=== PATIENT | male | born 1945 | race Caucasian/White ===

== ENCOUNTER 2020-08-27 10:53 | Emergency (ER) | payer OTHER ==
--- NOTE | 2020-08-27 11:01 | ERPHSYRPT ---
- History of Present Illness Time Seen by Provider: 08/27/20 11:00 Source: patient, family Exam Limitations: no limitations Physician History: This is a 75-year-old white male [facility] who presents with 1 to 2-month history of left upper extremity numbness. Patient has a history of coronary artery disease and coronary artery balloon angioplasty, CVA in the past, type 2 diabetes and hypertension. Patient denies head injury or injury to his left upper extremity. He denies chest pain. He denies shortness of breath. He has no flulike symptoms. There are no new medications that he takes. Patient states he is under a lot of stress. Occurred: other (1 to 2 months) Method of Injury: other (No injury) Quality: intermittent (Numbness left upper extremity) Severity of Pain-Max: none Severity of Pain-Current: none Modifying Factors: Improves With: nothing Associated Symptoms: none, No chest discomfort, No chest pain, No dyspnea, No short of breath Allergies/Adverse Reactions: No Known Drug Allergies Allergy (Verified 08/27/20 11:14) Home Medications: Unobtainable 08/27/20 [History] Travel Risk - International Travel Have you traveled outside of the country in past 3 weeks: No - Coronavirus Screening Are you exhibiting any of the following symptoms?: No Close contact with a COVID-19 positive Pt in past 14-21 Days: No - Review of Systems Constitutional: No Symptoms Eyes: No Symptoms Ears, Nose, & Throat: No Symptoms Respiratory: No Symptoms Cardiac: No Symptoms Abdominal/Gastrointestinal: No Symptoms Genitourinary Symptoms: No Symptoms Musculoskeletal: No Symptoms Skin: No Symptoms Neurological: Parasthesia (lue) Psychological: No Symptoms Endocrine: No Symptoms Hematologic/Lymphatic: No Symptoms Immunological/Allergic: No Symptoms All Other Systems: Reviewed and Negative - Past Medical History Pertinent Past Medical History: Yes Neurological History: Stroke, TIA ENT History: No Pertinent History Cardiac History: Coronary Artery Disease Respiratory History: No Pertinent History Endocrine Medical History: Diabetes Type II Musculoskeletal History: No Pertinent History GI Medical History: No Pertinent History History: No Pertinent History Psycho-Social History: No Pertinent History - Past Surgical History Past Surgical History: Yes Neuro Surgical History: No Pertinent History Cardiac: Angioplasty Respiratory: No Pertinent History Gastrointestinal: No Pertinent History Genitourinary: No Pertinent History Musculoskeletal: No Pertinent History Male Surgical History: No Pertinent History - Nursing Vital Signs Nursing Vital Signs: Initial Vital Signs Temperature 97.6 F 08/27/20 11:00 Pulse Rate 65 08/27/20 11:00 Respiratory Rate 20 08/27/20 11:00 Blood Pressure 188/94 08/27/20 11:00 O2 Sat by Pulse Oximetry 98 08/27/20 11:00 Pain Scale Pain Intensity 0 - Physical Exam General Appearance: no apparent distress, alert, anxiety Eyes, Ears, Nose, Throat Exam: normal ENT inspection, moist mucous membranes Neck Exam: normal inspection, non-tender, supple, full range of motion Cardiovascular/Respiratory Exam: chest non-tender, normal breath sounds, regular rate/rhythm, heart sounds normal, no respiratory distress Abdominal Exam: non-tender Back Exam: normal inspection, normal range of motion, No CVA tenderness, No vertebral tenderness Shoulder Exam: normal inspection, non-tender, no evidence of injury Elbow/Forearm Exam: normal inspection, non-tender, no evidence of injury, normal ROM Wrist Exam: normal inspection, non-tender, no evidence of injury Hand Exam: normal inspection, non-tender, no evidence of injury, normal ROM Neuro/Tendon Exam: normal sensation, normal motor functions, normal tendon functions Mental Status Exam: alert, 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, cooperative Skin Exam: normal color, warm, dry SpO2 Interpretation: normal O2 Delivery: Room Air - Course Nursing assessment & vital signs reviewed: Yes EKG Interpreted by Me: RATE (59), Sinus Rhythm, NORMAL AXIS, LAFB, NORMAL INTERVALS, NORMAL QRS, Right Bundle Branch Block, Other (No comparison EKG) Ordered Tests: Active Orders 24 hr Category Date Time Status Steel Barrel Reamer STAT Care 08/27/20 11:06 Active EKG-ER Only STAT Care 08/27/20 11:05 Active IV Insertion STAT Care 08/27/20 11:05 Active NPO (ED) STAT Care 08/27/20 11:06 Active Pulse Oximetry (ED) STAT Care 08/27/20 11:05 Active CERVICAL SPINE WO CONTRAST [CT] Stat Exams 08/27/20 11:07 Completed HEAD WITHOUT CONTRAST [CT] Stat Exams 08/27/20 11:07 Completed CBC W DIFF Stat Lab 08/27/20 11:16 Completed CMP Stat Lab 08/27/20 11:16 Completed MAGNESIUM Stat Lab 08/27/20 11:16 Completed NT PRO BNP Stat Lab 08/27/20 11:16 Completed PROTIME WITH INR Stat Lab 08/27/20 11:16 Completed TROPONIN Q3H Lab 08/27/20 11:16 Completed TROPONIN Q3H Lab 08/27/20 14:15 Ordered TROPONIN Q3H Lab 08/27/20 17:15 Ordered TROPONIN Q3H Lab 08/27/20 20:15 Ordered TROPONIN Q3H Lab 08/27/20 23:15 Ordered Lab/Rad Data: Laboratory Result Diagrams 08/27/20 11:16 08/27/20 11:16 Laboratory Results 08/27/20 08/27/20 08/27/20 Range/Units 11:16 11:16 11:16 WBC (4.0-10.5) K/mm3 RBC (4.1-5.6) M/mm3 Hgb (12.5-18.0) gm/dl Hct (42-50) % MCV (78-100) fl MCH (26-32) pg MCHC (32-36) g/dl RDW (11.5-14.0) % Plt Count (150-450) K/mm3 MPV (7.5-11.0) fl Gran % (36.0-66.0) % Eos # (Auto) (0-0.5) Absolute Lymphs (auto) (1.0-4.6) Absolute Monos (auto) (0.0-1.3) Lymphocytes % (24.0-44.0) % Monocytes % (0.0-12.0) % Eosinophils % (0.00-5.0) % Basophils % (0.0-0.4) % Absolute Granulocytes (1.4-6.9) Basophils # (0-0.4) PT 12.6 (8.83-12.87) SECONDS INR 1.11 (0.8-3.0) Sodium 140 (137-145) mmol/L Potassium 4.2 (3.5-5.1) mmol/L Chloride 108 H (98-107) mmol/L Carbon Dioxide 25 (22-30) mmol/L Anion Gap 10.8 (5-15) MEQ/L BUN 20 (9-20) mg/dL Creatinine 0.90 (0.66-1.25) mg/dL Estimated GFR > 60.0 ML/MIN Glucose 186 H (74-106) mg/dL Calcium 10.3 H (8.4-10.2) mg/dL Magnesium 1.7 (1.6-2.3) mg/dL Total Bilirubin 0.40 (0.2-1.3) mg/dL AST 33 (17-59) U/L ALT 24 (0-50) U/L Alkaline Phosphatase 85 (38-126) U/L Troponin I < 0.012 (0.000-0.034) ng/mL NT-Pro-B Natriuret Pep 65.2 (0-900) pg/mL Serum Total Protein 7.3 (6.3-8.2) g/dL Albumin 4.1 (3.5-5.0) g/dL 08/27/20 Range/Units 11:16 WBC 7.1 (4.0-10.5) K/mm3 RBC 4.45 (4.1-5.6) M/mm3 Hgb 13.5 (12.5-18.0) gm/dl Hct 39.3 L (42-50) % MCV 88.3 (78-100) fl MCH 30.3 (26-32) pg MCHC 34.4 (32-36) g/dl RDW 13.5 (11.5-14.0) % Plt Count 232 (150-450) K/mm3 MPV 10.5 (7.5-11.0) fl Gran % 60.2 (36.0-66.0) % Eos # (Auto) 0.36 (0-0.5) Absolute Lymphs (auto) 1.80 (1.0-4.6) Absolute Monos (auto) 0.63 (0.0-1.3) Lymphocytes % 25.4 (24.0-44.0) % Monocytes % 8.9 (0.0-12.0) % Eosinophils % 5.1 H (0.00-5.0) % Basophils % 0.4 (0.0-0.4) % Absolute Granulocytes 4.28 (1.4-6.9) Basophils # 0.03 (0-0.4) PT (8.83-12.87) SECONDS INR (0.8-3.0) Sodium (137-145) mmol/L Potassium (3.5-5.1) mmol/L Chloride (98-107) mmol/L Carbon Dioxide (22-30) mmol/L Anion Gap (5-15) MEQ/L BUN (9-20) mg/dL Creatinine (0.66-1.25) mg/dL Estimated GFR ML/MIN Glucose (74-106) mg/dL Calcium (8.4-10.2) mg/dL Magnesium (1.6-2.3) mg/dL Total Bilirubin (0.2-1.3) mg/dL AST (17-59) U/L ALT (0-50) U/L Alkaline Phosphatase (38-126) U/L Troponin I (0.000-0.034) ng/mL NT-Pro-B Natriuret Pep (0-900) pg/mL Serum Total Protein (6.3-8.2) g/dL Albumin (3.5-5.0) g/dL - Progress Progress: unchanged, re-examined Progress Note: 08/27/20 12:19 CAT scan of the head without contrast reveals no acute intracranial abnormality. CAT scan of the cervical spine without contrast reveals no acute fracture or subluxation. Medical decision making: This patient does not have any evidence of any acute, emergent issue. His symptoms have been chronic. We will discharge him to home and [facility] to [facility]up appointment. Counseled pt/family regarding: lab results, diagnosis, need for follow-up, rad results - Departure Departure Disposition: Home Clinical Impression: Numbness and tingling in left arm Condition: Stable Critical Care Time: No Referrals: [facility] [Primary Care Provider] - Additional Instructions: Call the [facility] today to make arrangements for follow-up appointment. Continue your medication as prescribed.
[2020-08-27 11:23] LABS: Absolute Neutrophil Ct (ANC) 4.28 (1.4-6.9); BASOPHIL % 0.4 % (0.0-0.4); Basophil (Absolute #) 0.03 (0-0.4); Eosinophil % 5.1 % (0.00-5.0); Eosinophil (Absolute #) 0.36 (0-0.5); Hematocrit 39.3 % (42-50); Hemoglobin 13.5 gm/dl (12.5-18.0); Lymphocytes % 25.4 % (24.0-44.0); Mean Cell Volume 88.3 fl (78-100); Mean Corpuscular Hemoglobin 30.3 pg (26-32); Mean Corpuscular Hgb Concent. 34.4 g/dl (32-36); Mean Platelet Volume 10.5 fl (7.5-11.0); Monocyte (Absolute #) 0.63 (0.0-1.3); Monocytes % 8.9 % (0.0-12.0); Neutrophil % 60.2 % (36.0-66.0); Platelet Count 232 K/mm3 (150-450); Red Blood Count 4.45 M/mm3 (4.1-5.6); Red Cell Distribution Width 13.5 % (11.5-14.0); White Blood Count 7.1 K/mm3 (4.0-10.5)
[2020-08-27 11:34] LABS: INR 1.11 (0.8-3.0); PROTIME 12.6 SECONDS (8.83-12.87)
[2020-08-27 11:44] LABS: ALBUMIN 4.1 g/dL (3.5-5.0); ALKALINE PHOSPHATASE 85 U/L (38-126); ANION GAP 10.8 MEQ/L (5-15); BLOOD UREA NITROGEN 20 mg/dL (9-20); CHLORIDE 108 mmol/L (98-107); Calcium 10.3 mg/dL (8.4-10.2); Carbon Dioxide 25 mmol/L (22-30); EST GLOMERULAR FILTRATION RATE > 60.0 ML/MIN; Glucose 186 mg/dL (74-106); MAGNESIUM 1.7 mg/dL (1.6-2.3); NT PRO BNP 65.2 pg/mL (0-900); Potassium 4.2 mmol/L (3.5-5.1); SGOT/AST 33 U/L (17-59); SGPT/ALT 24 U/L (0-50); SODIUM 140 mmol/L (137-145); Total Protein 7.3 g/dL (6.3-8.2)
--- NOTE | 2020-08-27 11:54 | XRAY ---
Indication: Left hand numbness 2 weeks. Left leg swelling. Frequent urination. Multiple contiguous ex images obtained through the head without contrast. Comparison: None Age-appropriate global atrophy. No acute intracranial hemorrhage, abnormal extra-axial fluid collection, or mass effect. Fourth ventricle is midline without hydrocephalus. Bony calvarium intact. Metallic shrapnel deep to left mandible body. Visualized paranasal sinuses are clear. Impression: Atrophy within normal limits for patient's age. No acute intracranial abnormalities.
--- NOTE | 2020-08-27 11:57 | XRAY ---
Indication: Left hand numbness 2 weeks. Multiple contiguous ex images obtained through the cervical spine. Sagittal and coronal reformatted images obtained. Comparison: None Several images slightly degraded by motion artifact. Axial images grossly negative for acute fracture, suspicious bony lesions, or spinal canal stenosis. There is minimal/mild C3-C4 and C5-C7 degenerative endplate spurring. Also mild multilevel bilateral degenerative facet hypertrophy. Sagittal and coronal reformatted images demonstrates cervical lordotic reversal, positional versus paraspinal spasm. C3-C4 and C5-C6 degenerative disc space loss. No acute compression fracture, subluxation, or jumped facet. Normal appearing craniocervical junction. Visualized noncontrasted soft tissues demonstrates mild carotid calcifications bilaterally. Lung apices are clear. Impression: 1. Cervical lordotic reversal positional versus paraspinal spasm. 2. Multilevel degenerative changes and scattered carotid calcifications. 3. Remaining CT cervical spine is negative.
[2020-08-27 12:36] VITALS: BP 178/85; PULSE 56; O2SAT 95
== END 2020-08-27 12:45 | disposition home or self-care (01) ==
LOC: ED 10:53
DX: R20.0 Anesthesia of skin (principal); R20.2 Paresthesia of skin
CPT/HCPCS: 36000; 36415; 70450; 72125; 80053; 83735; 83880; 84484; 85025; 85610; 93005; 93041; 94760; 99284

== ENCOUNTER 2021-02-23 16:36 | Emergency (ER) | payer OTHER ==
[2021-02-23] MEDS ORDERED: Sodium Chloride 0.9% 1000 ML 1,000 ML IV SCH (17:00)
[2021-02-23] MEDS ORDERED: ANTIVERT 25 MG PO ONE (17:00)
[2021-02-23] MEDS ORDERED: Sodium Chloride 0.9% 1000 ML 1,000 ML ONE (17:05)
[2021-02-23] MEDS ORDERED: ANTIVERT 25 MG ONE (17:05)
[2021-02-23 17:15] LABS: Absolute Neutrophil Ct (ANC) 11.75 (1.4-6.9); BASOPHIL % 0.2 % (0.0-0.4); Basophil (Absolute #) 0.03 (0-0.4); Eosinophil % 0.1 % (0.00-5.0); Eosinophil (Absolute #) 0.01 (0-0.5); Hematocrit 38.2 % (42-50); Hemoglobin 13.1 gm/dl (12.5-18.0); Lymphocyte (Absolute #) 1.14 (1.0-4.6); Lymphocytes % 8.2 % (24.0-44.0); Mean Corpuscular Hemoglobin 29.8 pg (26-32); Mean Corpuscular Hgb Concent. 34.3 g/dl (32-36); Mean Platelet Volume 10.4 fl (7.5-11.0); Monocyte (Absolute #) 0.95 (0.0-1.3); Monocytes % 6.8 % (0.0-12.0); Neutrophil % 84.7 % (36.0-66.0); Platelet Count 201 K/mm3 (150-450); Red Blood Count 4.39 M/mm3 (4.1-5.6); Red Cell Distribution Width 13.2 % (11.5-14.0); White Blood Count 13.9 K/mm3 (4.0-10.5)
[2021-02-23 17:28] LABS: ALBUMIN 4.1 g/dL (3.5-5.0); BILIRUBIN,TOTAL 0.6 mg/dL (0.2-1.3); Calcium 9.9 mg/dL (8.4-10.2); Creatinine 1 1.33 mg/dL (0.66-1.25); EST GLOMERULAR FILTRATION RATE 55.9 ML/MIN; MAGNESIUM 1.6 mg/dL (1.6-2.3); Potassium 3.8 mmol/L (3.5-5.1); Total Protein 7.3 g/dL (6.3-8.2)
[2021-02-23 17:46] LABS: Appearance CLEAR (CLEAR); Bilirubin NEGATIVE (NEGATIVE); Blood SMALL Ery/ul (0-5); Glucose NEGATIVE (NEGATIVE); Ketones NEGATIVE (NEGATIVE); Leukocyte Esterase NEGATIVE (NEGATIVE); Mucus SLIGHT /HPF (NEGATIVE); Nitrite NEGATIVE (NEGATIVE); Protein,Urine Dip 100 (Negative); Specific Gravity 1.018 (1.005-1.025); Urobilinogen NEGATIVE mg/dL (0-1)
[2021-02-23 18:06] LABS: Bacteria NONE SEEN /HPF (NEGATIVE)
--- NOTE | 2021-02-23 18:12 | ERPHSYRPT ---
- History of Present Illness Time Seen by Provider: 02/23/21 16:43 Source: patient, family Exam Limitations: no limitations Patient Subjective Stated Complaint: pt here for dizziness for 3-4 days, and has been having left earache, he was seen [facility] ye[facility] and given an antibotic that he was not started, he also states he has not been taking hes meds right Triage Nursing Assessment: pt alert, resp easy, skin w/d/p, no edema noted, pt able to get self up from wc to bed Physician History: 75 years old male with multiple medical problems including coronary artery disease status post stenting, hypertension, hyperlipidemia presented in the ER with chief complaint of dizziness since morning. Patient report every time he tried to stand up or do some activity gets dizzy and lightheaded. Patient denies room spinning sensation but feels unsteady from inside. Denies any fall but does get unbalanced. Denies focal numbness tingling or weakness. No difficulty speech. Does report having some palpitations at times with episodes of dizziness. Each episode lasts for few minutes and improves. Patient does have left ear drainage for almost a month with foul-smelling discharge, was evaluated at [facility] yesterday and is waiting for his medications to be mailed. Timing/Duration: today, sudden, worse Severity: moderate Character of Deficits: other Deficits: off balance Baseline/Normal Cognition: alert 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 Current Cognition: alert 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 Associated Symptoms: trouble walking, No loss of consciousness Allergies/Adverse Reactions: No Known Drug Allergies Allergy (Verified 02/23/21 16:51) Home Medications: ALPRAZolam 0.25 MG [xanAX 0.25 MG] 0.25 mg PO BID 02/23/21 [History] Amlodipine Besylate [Norvasc] 10 mg PO DAILY 02/23/21 [History] Aspirin EC 81 mg [Ecotrin 81 mg] 81 mg PO DAILY 02/23/21 [History] Atorvastatin Calcium [Lipitor] 40 mg PO DAILY 02/23/21 [History] Bisacodyl 5 mg [Dulcolax 5 mg] 5 mg PO DAILY 02/23/21 [History] Duloxetine HCl 30 mg [Cymbalta 30 MG Capsule] 90 mg PO DAILY 02/23/21 [History] Ergocalciferol (Vitamin D2) [Vitamin D2] 50,000 unit PO WEEKLY 02/23/21 [History] Finasteride 5 mg [Proscar 5 MG] 5 mg PO DAILY 02/23/21 [History] Fish Oil/Dha/Epa [Fish Oil 1,200 mg Fish Oil] 1 each PO DAILY 02/23/21 [History] Ketoconazole [Nizoral A-D] 1 ml TP 3XW 02/23/21 [History] Ketorolac Tromethamine 0.5% [Acular OPTH MAKENNA] 1 ml OP UD 02/23/21 [History] Metformin HCl 1,000 mg PO BID 02/23/21 [History] Metoprolol Tartrate 100 mg PO BID 02/23/21 [History] Naproxen 500 mg [Naprosyn 500 MG] 500 mg PO DAILY 02/23/21 [History] Oxybutynin Chloride 5 mg PO TID 02/23/21 [History] glipiZIDE [Glucotrol] 20 mg PO BID 02/23/21 [History] hydroCHLOROthiazide [Hydrochlorothiazide] 25 mg PO DAILY 02/23/21 [History] Hx Influenza Vaccination/Date Given: Yes Hx Pneumococcal Vaccination/Date Given: Yes Immunizations Up to Date: No Travel Risk - International Travel Have you traveled outside of the country in past 3 weeks: No - Coronavirus Screening Are you exhibiting any of the following symptoms?: No Close contact with a COVID-19 positive Pt in past 14-21 Days: No - Vaccine Status Have you recieved a Covid-19 vaccination: No - Review of Systems Constitutional: No Symptoms Eyes: No Symptoms Ears, Nose, & Throat: Ear Pain, Ear Discharge, Hearing Changes Respiratory: No Symptoms Cardiac: Palpitations Abdominal/Gastrointestinal: No Symptoms Genitourinary Symptoms: No Symptoms Musculoskeletal: No Symptoms Neurological: Dizziness Endocrine: No Symptoms Hematologic/Lymphatic: No Symptoms Immunological/Allergic: No Symptoms - Past Medical History Pertinent Past Medical History: Yes Neurological History: Stroke, TIA ENT History: No Pertinent History Cardiac History: Coronary Artery Disease Respiratory History: No Pertinent History Endocrine Medical History: Diabetes Type II Musculoskeletal History: No Pertinent History GI Medical History: No Pertinent History History: No Pertinent History Psycho-Social History: No Pertinent History - Past Surgical History Past Surgical History: Yes Neuro Surgical History: No Pertinent History Cardiac: Angioplasty Respiratory: No Pertinent History Gastrointestinal: No Pertinent History Genitourinary: No Pertinent History Musculoskeletal: No Pertinent History Male Surgical History: No Pertinent History - Social History Smoking Status: Former smoker Exposure to second hand smoke: Yes Drug Use: none Patient Lives Alone: Yes - Nursing Vital Signs Nursing Vital Signs: Initial Vital Signs Pulse Rate 82 02/23/21 16:44 Respiratory Rate 16 02/23/21 16:44 Blood Pressure 179/79 02/23/21 16:44 O2 Sat by Pulse Oximetry 98 02/23/21 16:44 Pain Scale Pain Intensity 0 - Yani Coma Scale Best Eye Response ([place]): (4) open spontaneously Best Verbal Response (Yani): (5) oriented Best Motor Response (Yani): (6) obeys commands [place] Total: 15 - Physical Exam General Appearance: no apparent distress, alert Eye Exam: bilateral eye: normal inspection, PERRL, EOMI Ears, Nose, Throat Exam: pharynx normal, TM abnormal (L), other (Left canal erythema with yellow-green discharge. TM not visible. 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 Exam: normal hearing, normal speech, PERRL Coordination/Gait: normal finger to nose, No ABN nose to finger (R) Motor/Sensory: no motor deficit, no sensory deficit, no pronator drift, negative Babinski's sign DTR: bicep (R): 2+, bicep (L): 2+, knee (R): 2+, knee (L): 2+ Skin Exam: normal color SpO2 Interpretation: normal SpO2: 95 O2 Delivery: Room Air - Course EKG Interpreted by Me: RATE (81), Sinus Rhythm, Left [place] Deviation, LAFB, Right Bundle Branch Block Ordered Tests: Active Orders 24 hr Category Date Time Status Humidifier Operator STAT Care 02/23/21 17:01 Active EKG-ER Only STAT Care 02/23/21 17:00 Active [place] [Catheter-[place]] STAT Care 02/23/21 19:45 Active IV Insertion STAT Care 02/23/21 17:00 Active IV Insertion-2nd Peripheral STAT Care 02/23/21 19:35 Active Orthostatic Vital Signs STAT Care 02/23/21 17:00 Active Oxygen-ED Only Nasal Cannula 4 lpm Care 02/23/21 19:56 Active POCT Glucose Check STAT Care 02/23/21 17:35 Active CHEST 1 VIEW (PORTABLE) Stat Exams 02/23/21 17:00 Completed CHEST 1 VIEW (PORTABLE) Stat Exams 02/23/21 19:[address] ANGIOGRAPHY NECK [CT] Stat Exams 02/23/21 18:48 Taken CTA HEAD W AND/OR WO CONTRAST [CT] Stat Exams 02/23/21 18:47 Taken HEAD WITHOUT CONTRAST [CT] Stat Exams 02/23/21 17:01 Completed ABG [ARTERIAL BLOOD GASES] Stat Lab 02/23/21 18:50 Completed BLOOD CULTURE Stat Lab 02/23/21 19:02 Received BNP [NT PRO BNP] Stat Lab 02/23/21 17:30 Completed CBC W DIFF Stat Lab 02/23/21 17:11 Completed CMP Stat Lab 02/23/21 17:11 Completed CULTURE,URINE Stat Lab 02/23/21 17:40 Received CULTURE,URINE Stat Lab 02/23/21 19:51 Received Lactic Acid Stat Lab 02/23/21 17:05 Completed MAGNESIUM Stat Lab 02/23/21 17:11 Completed POCT GLUCOSE Stat Lab 02/23/21 17:33 Completed POCT GLUCOSE Stat Lab 02/23/21 17:33 Received TROPONIN Q3H Lab 02/23/21 17:11 Completed TROPONIN Q3H Lab 02/23/21 19:02 Completed TROPONIN Q3H Lab 02/23/21 23:00 Ordered TROPONIN Q3H Lab 02/24/21 02:00 Ordered TROPONIN Q3H Lab 02/24/21 05:00 Ordered UA W/RFX UR CULTURE Stat Lab 02/23/21 17:40 Completed UA W/RFX UR CULTURE Stat Lab 02/23/21 19:47 Completed Medication Summary Generic Name Dose Route Start Last Admin Trade Name Freq PRN Reason Stop Dose Admin Sodium Chloride 1,000 mls @ 100 mls/hr 02/23/21 17:00 02/23/21 17:06 Sodium Chloride 0.9% 1000 Ml IV 03/25/21 16:59 100 mls/hr .Q10H FELICE Administration Discontinued Medications Generic Name Dose Route Start Last Admin Trade Name Robert PRN Reason Stop Dose Admin Acetaminophen Confirm 02/23/21 19:11 [place] 650 Mg Administered 02/23/21 19:12 Dose 650 mg .ROUTE .STK-MED ONE Acetaminophen Confirm 02/23/21 19:11 [place] 325 Mg Administered 02/23/21 19:12 Dose 325 mg .ROUTE .STK-MED ONE Acetaminophen 650 mg 02/23/21 19:25 02/23/21 19:26 [place] 650 Mg TN 02/23/21 19:26 650 mg STAT ONE Administration Acetaminophen 325 mg 02/23/21 19:25 02/23/21 19:26 F[place]all 325 Mg TN 02/23/21 19:26 325 mg STAT STA Administration Piperacillin Sod/Tazobactam 100 mls @ 200 mls/hr 02/23/21 18:31 02/23/21 18:59 Sod 3.375 gm/ Sodium Chloride IV 02/23/21 19:00 200 mls/hr STAT ONE Administration Vancomycin HCl 2 gm in 400 mls @ 133.333 mls/hr 02/23/21 18:33 02/23/21 19:27 Vancomycin 2 Gram/400 Ml Bag IV 02/23/21 21:32 133 ml/hr STAT ONE 133 mls/hr Administration Sodium Chloride Confirm 02/23/21 18:53 Sodium Chloride 100ml Mini-Bag Plus Administered 02/23/21 18:54 Dose 100 mls @ ud IV .STK-MED ONE Vancomycin HCl Confirm 02/23/21 18:54 Vancomycin 2 Gram/400 Ml Bag Administered 02/23/21 18:55 Dose 2 gm in 400 mls @ ud IV .STK-MED ONE Lorazepam 0.5 mg 02/23/21 19:49 02/23/21 19:56 Ativan 2 Mg/1 Ml Vial IV 02/23/21 19:50 0.5 mg STAT ONE Administration Lorazepam Confirm 02/23/21 19:50 Ativan 2 Mg/1 Ml Vial Administered 02/23/21 19:51 Dose 2 mg .ROUTE .STK-MED ONE Lorazepam 1 mg 02/23/21 20:28 02/23/21 20:32 Ativan 2 Mg/1 Ml Vial IV 02/23/21 20:29 1 mg STAT ONE Administration Lorazepam Confirm 02/23/21 20:29 Ativan 2 Mg/1 Ml Vial Administered 02/23/21 20:30 Dose 2 mg .ROUTE .STK-MED ONE Meclizine HCl 25 mg 02/23/21 17:00 02/23/21 17:06 Antivert 25 Mg PO 02/23/21 17:01 25 mg STAT ONE Administration Meclizine HCl Confirm 02/23/21 17:05 Antivert 25 Mg Administered 02/23/21 17:06 Dose 25 mg .ROUTE .STK-MED ONE Ondansetron HCl Confirm 02/23/21 18:19 Zofran 4 Mg/2 Ml Vial Administered 02/23/21 18:20 Dose 4 mg .ROUTE .STK-MED ONE Ondansetron HCl 4 mg 02/23/21 18:27 02/23/21 18:20 Zofran 4 Mg/2 Ml Vial IV 02/23/21 18:28 4 mg STAT ONE Administration Piperacillin Sod/Tazobactam Sod Confirm 02/23/21 18:53 Zosyn 3.375 Gm Vial Administered 02/23/21 18:54 Dose 3.375 gm IV .STK-MED ONE Lab/Rad Data: Laboratory Result Diagrams 02/23/21 17:11 02/23/21 17:11 Laboratory Results 02/23/21 02/23/21 02/23/21 Range/Units 19:47 19:02 18:50 WBC (4.0-10.5) K/mm3 RBC (4.1-5.6) M/mm3 Hgb (12.5-18.0) gm/dl Hct (42-50) % MCV (78-100) fl MCH (26-32) pg MCHC (32-36) g/dl RDW (11.5-14.0) % Plt Count (150-450) K/mm3 MPV (7.5-11.0) fl Gran % (36.0-66.0) % Eos # (Auto) (0-0.5) Absolute Lymphs (auto) (1.0-4.6) Absolute Monos (auto) (0.0-1.3) Lymphocytes % (24.0-44.0) % Monocytes % (0.0-12.0) % Eosinophils % (0.00-5.0) % Basophils % (0.0-0.4) % Absolute Granulocytes (1.4-6.9) Basophils # (0-0.4) Puncture Site LEFT BRACHIAL pCO2 31 L (35-45) mmHg pO2 65 L (75-100) mmHg Base Excess 1.7 (-2.0-2.0) O2 Saturation 92.8 L (94-100) g/dF ABG pH 7.50 H (7.35-7.45) ABG HCO3 24.2 (22-28) ABG O2 Sat (Measured) 93.9 L (95-100) % Dale Test N/A A-a Gradient 96 a/A Ratio 0.40 Hemoglobin 13.5 Carboxyhemoglobin 0.7 (0.0-6.9) % THgb Methemoglobin 0.5 L (1.4-1.5) % Temperature 37.0 C POC O2 Flow Rate 28 % Sodium (137-145) mmol/L Potassium 3.5 (3.5-5.1) mmol/L Chloride (98-107) mmol/L Carbon Dioxide (22-30) mmol/L Anion Gap (5-15) MEQ/L BUN (9-20) mg/dL Creatinine (0.66-1.25) mg/dL Estimated GFR ML/MIN Glucose (74-106) mg/dL POC Glucometer (74 to 106) mg/dL Lactic Acid (0.4-2.0) Calcium (8.4-10.2) mg/dL Magnesium (1.6-2.3) mg/dL Total Bilirubin (0.2-1.3) mg/dL AST (17-59) U/L ALT (0-50) U/L Alkaline Phosphatase (38-126) U/L Troponin I < 0.012 (0.000-0.034) ng/mL NT-Pro-B Natriuret Pep (0-900) pg/mL Serum Total Protein (6.3-8.2) g/dL Albumin (3.5-5.0) g/dL Urine Color YELLOW (YELLOW) Urine Appearance CLEAR (CLEAR) Urine pH 5.0 (5-6) Ur Specific [place] 1.029 (1.005-1.025) Urine Protein 100 (Negative) Urine Ketones NEGATIVE (NEGATIVE) Urine Blood SMALL (0-5) Nathan/ul Urine Nitrite NEGATIVE (NEGATIVE) Urine Bilirubin NEGATIVE (NEGATIVE) Urine Urobilinogen NEGATIVE (0-1) mg/dL Ur Leukocyte Esterase NEGATIVE (NEGATIVE) Urine WBC (Auto) 0-2 (0-5) /HPF Urine RBC (Auto) 0-2 (0-2) /HPF U Epithel Cells (Auto) NONE (FEW) /HPF Urine Bacteria (Auto) NONE SEEN (NEGATIVE) /HPF Urine Mucus (Auto) SLIGHT (NEGATIVE) /HPF Urine Culture Reflexed ORDERED SEPARATELY (NO) Urine Glucose NEGATIVE (NEGATIVE) mg/dL 02/23/21 02/23/21 02/23/21 Range/Units 17:40 17:33 17:30 WBC (4.0-10.5) K/mm3 RBC (4.1-5.6) M/mm3 Hgb (12.5-18.0) gm/dl Hct (42-50) % MCV (78-100) fl MCH (26-32) pg MCHC (32-36) g/dl RDW (11.5-14.0) % Plt Count (150-450) K/mm3 MPV (7.5-11.0) fl Gran % (36.0-66.0) % Eos # (Auto) (0-0.5) Absolute Lymphs (auto) (1.0-4.6) Absolute Monos (auto) (0.0-1.3) Lymphocytes % (24.0-44.0) % Monocytes % (0.0-12.0) % Eosinophils % (0.00-5.0) % Basophils % (0.0-0.4) % Absolute Granulocytes (1.4-6.9) Basophils # (0-0.4) Puncture Site pCO2 (35-45) mmHg pO2 (75-100) mmHg Base Excess (-2.0-2.0) O2 Saturation (94-100) g/dF ABG pH (7.35-7.45) ABG HCO3 (22-28) ABG O2 Sat (Measured) (95-100) % Dale Test A-a Gradient a/A Ratio Hemoglobin Carboxyhemoglobin (0.0-6.9) % THgb Methemoglobin (1.4-1.5) % Temperature C POC O2 Flow Rate % Sodium (137-145) mmol/L Potassium (3.5-5.1) mmol/L Chloride (98-107) mmol/L Carbon Dioxide (22-30) mmol/L Anion Gap (5-15) MEQ/L BUN (9-20) mg/dL Creatinine (0.66-1.25) mg/dL Estimated GFR ML/MIN Glucose (74-106) mg/dL POC Glucometer 159 H (74 to 106) mg/dL Lactic Acid (0.4-2.0) Calcium (8.4-10.2) mg/dL Magnesium (1.6-2.3) mg/dL Total Bilirubin (0.2-1.3) mg/dL AST (17-59) U/L ALT (0-50) U/L Alkaline Phosphatase (38-126) U/L Troponin I (0.000-0.034) ng/mL NT-Pro-B Natriuret Pep 171 (0-900) pg/mL Serum Total Protein (6.3-8.2) g/dL Albumin (3.5-5.0) g/dL Urine Color YELLOW (YELLOW) Urine Appearance CLEAR (CLEAR) Urine pH 5.0 (5-6) Ur Specific [place] 1.018 (1.005-1.025) Urine Protein 100 (Negative) Urine Ketones NEGATIVE (NEGATIVE) Urine Blood SMALL (0-5) Nathan/ul Urine Nitrite NEGATIVE (NEGATIVE) Urine Bilirubin NEGATIVE (NEGATIVE) Urine Urobilinogen NEGATIVE (0-1) mg/dL Ur Leukocyte Esterase NEGATIVE (NEGATIVE) Urine WBC (Auto) 3-5 (0-5) /HPF Urine RBC (Auto) NONE (0-2) /HPF U Epithel Cells (Auto) NONE (FEW) /HPF Urine Bacteria (Auto) NONE SEEN (NEGATIVE) /HPF Urine Mucus (Auto) SLIGHT (NEGATIVE) /HPF Urine Culture Reflexed YES (NO) Urine Glucose NEGATIVE (NEGATIVE) mg/dL 02/23/21 02/23/21 02/23/21 Range/Units 17:11 17:11 17:11 WBC 13.9 H (4.0-10.5) K/mm3 RBC 4.39 (4.1-5.6) M/mm3 Hgb 13.1 (12.5-18.0) gm/dl Hct 38.2 L (42-50) % MCV 87.0 (78-100) fl MCH 29.8 (26-32) pg MCHC 34.3 (32-36) g/dl RDW 13.2 (11.5-14.0) % Plt Count 201 (150-450) K/mm3 MPV 10.4 (7.5-11.0) fl Gran % 84.7 H (36.0-66.0) % Eos # (Auto) 0.01 (0-0.5) Absolute Lymphs (auto) 1.14 (1.0-4.6) Absolute Monos (auto) 0.95 (0.0-1.3) Lymphocytes % 8.2 L (24.0-44.0) % Monocytes % 6.8 (0.0-12.0) % Eosinophils % 0.1 (0.00-5.0) % Basophils % 0.2 (0.0-0.4) % Absolute Granulocytes 11.75 H (1.4-6.9) Basophils # 0.03 (0-0.4) Puncture Site pCO2 (35-45) mmHg pO2 (75-100) mmHg Base Excess (-2.0-2.0) O2 Saturation (94-100) g/dF ABG pH (7.35-7.45) ABG HCO3 (22-28) ABG O2 Sat (Measured) (95-100) % Dale Test A-a Gradient a/A Ratio Hemoglobin Carboxyhemoglobin (0.0-6.9) % THgb Methemoglobin (1.4-1.5) % Temperature C POC O2 Flow Rate % Sodium 135 L (137-145) mmol/L Potassium 3.8 (3.5-5.1) mmol/L Chloride 99 (98-107) mmol/L Carbon Dioxide 29 (22-30) mmol/L Anion Gap 11.0 (5-15) MEQ/L BUN 26 H (9-20) mg/dL Creatinine 1.33 H (0.66-1.25) mg/dL Estimated GFR 55.9 ML/MIN Glucose 163 H (74-106) mg/dL POC Glucometer (74 to 106) mg/dL Lactic Acid (0.4-2.0) Calcium 9.9 (8.4-10.2) mg/dL Magnesium 1.6 (1.6-2.3) mg/dL Total Bilirubin 0.60 (0.2-1.3) mg/dL AST 37 (17-59) U/L ALT 29 (0-50) U/L Alkaline Phosphatase 90 (38-126) U/L Troponin I < 0.012 (0.000-0.034) ng/mL NT-Pro-B Natriuret Pep (0-900) pg/mL Serum Total Protein 7.3 (6.3-8.2) g/dL Albumin 4.1 (3.5-5.0) g/dL Urine Color (YELLOW) Urine Appearance (CLEAR) Urine pH (5-6) Ur Specific [place] (1.005-1.025) Urine Protein (Negative) Urine Ketones (NEGATIVE) Urine Blood (0-5) Nathan/ul Urine Nitrite (NEGATIVE) Urine Bilirubin (NEGATIVE) Urine Urobilinogen (0-1) mg/dL Ur Leukocyte Esterase (NEGATIVE) Urine WBC (Auto) (0-5) /HPF Urine RBC (Auto) (0-2) /HPF U Epithel Cells (Auto) (FEW) /HPF Urine Bacteria (Auto) (NEGATIVE) /HPF Urine Mucus (Auto) (NEGATIVE) /HPF Urine Culture Reflexed (NO) Urine Glucose (NEGATIVE) mg/dL 02/23/21 Range/Units 17:05 WBC (4.0-10.5) K/mm3 RBC (4.1-5.6) M/mm3 Hgb (12.5-18.0) gm/dl Hct (42-50) % MCV (78-100) fl MCH (26-32) pg MCHC (32-36) g/dl RDW (11.5-14.0) % Plt Count (150-450) K/mm3 MPV (7.5-11.0) fl Gran % (36.0-66.0) % Eos # (Auto) (0-0.5) Absolute Lymphs (auto) (1.0-4.6) Absolute Monos (auto) (0.0-1.3) Lymphocytes % (24.0-44.0) % Monocytes % (0.0-12.0) % Eosinophils % (0.00-5.0) % Basophils % (0.0-0.4) % Absolute Granulocytes (1.4-6.9) Basophils # (0-0.4) Puncture Site pCO2 (35-45) mmHg pO2 (75-100) mmHg Base Excess (-2.0-2.0) O2 Saturation (94-100) g/dF ABG pH (7.35-7.45) ABG HCO3 (22-28) ABG O2 Sat (Measured) (95-100) % Dale Test A-a Gradient a/A Ratio Hemoglobin Carboxyhemoglobin (0.0-6.9) % THgb Methemoglobin (1.4-1.5) % Temperature C POC O2 Flow Rate % Sodium (137-145) mmol/L Potassium (3.5-5.1) mmol/L Chloride (98-107) mmol/L Carbon Dioxide (22-30) mmol/L Anion Gap (5-15) MEQ/L BUN (9-20) mg/dL Creatinine (0.66-1.25) mg/dL Estimated GFR ML/MIN Glucose (74-106) mg/dL POC Glucometer (74 to 106) mg/dL Lactic Acid 1.9 (0.4-2.0) Calcium (8.4-10.2) mg/dL Magnesium (1.6-2.3) mg/dL Total Bilirubin (0.2-1.3) mg/dL AST (17-59) U/L ALT (0-50) U/L Alkaline Phosphatase (38-126) U/L Troponin I (0.000-0.034) ng/mL NT-Pro-B Natriuret Pep (0-900) pg/mL Serum Total Protein (6.3-8.2) g/dL Albumin (3.5-5.0) g/dL Urine Color (YELLOW) Urine Appearance (CLEAR) Urine pH (5-6) Ur Specific [place] (1.005-1.025) Urine Protein (Negative) Urine Ketones (NEGATIVE) Urine Blood (0-5) Nathan/ul Urine Nitrite (NEGATIVE) Urine Bilirubin (NEGATIVE) Urine Urobilinogen (0-1) mg/dL Ur Leukocyte Esterase (NEGATIVE) Urine WBC (Auto) (0-5) /HPF Urine RBC (Auto) (0-2) /HPF U Epithel Cells (Auto) (FEW) /HPF Urine Bacteria (Auto) (NEGATIVE) /HPF Urine Mucus (Auto) (NEGATIVE) /HPF Urine Culture Reflexed (NO) Urine Glucose (NEGATIVE) mg/dL - Progress Progress: re-examined Progress Note: 02/23/21 19:03 75 years old is evaluated for dizziness. Patient has grossly nonfocal neuro exam on presentation. Is given meclizine. Does have discharged left ear. Negative orthostatics. EKG did not show any acute ST elevations and negative initial troponin. White count 13 with some ALEX with a creatinine of 1.26. Gentle hydration started. CT head is obtained which is negative for any intracranial bleed, midline shift or mass-effect. Neurology specialist on-call tele consult is recommended and obtained. Meanwhile patient started to get more confused and agitated, not acting himself with no previous history of similar symptoms in the past. Moving all 4 extremities. He is calm down but still not back to normal. Neurology has evaluated, recommended CTA head and neck and if negative needs MRI. With his ear infection/encephalopathy I have started him on broad-spectrum antibiotics as well. Discussed with son in detail about current work-up and plan of care and he wants them to be transferred to [facility]. 02/23/21 20:28 Patient did spike fever 101 little bit after neuro consult and is given Tylenol suppository. He is already given a dose of vancomycin and Zosyn. Other than otitis externa does not have any obvious focus of infection. Cultures are pending. CTA head and neck are negative for any acute findings. Per neurology recommendation patient needs MRI for further evaluation. But patient did not have fever while neurology evaluation was done. Discussed with Dr. Cifuentes, recommended transfer to higher level of care. I have discussed with Dr. Gross at [facility], reviewed patient history, work-up, neurology recommendation current management and agreed with transfer. I would leave it up to [facility] to do MRI as his encephalopathy/confusion could be secondary to sepsis/infectious etiology. 02/23/21 22:07 Family later on reported that patient does have sharpnel in his body from [employer] war and cannot have MRI under any circumstances. Discussed with DrJazmyne: Other Counseled pt/family regarding: lab results, diagnosis, rad results - Departure Departure Disposition: Transfer Clinical Impression: Acute encephalopathy, Dizziness Otitis externa Qualifiers: Otitis externa type: unspecified type Chronicity: acute Laterality: left Qualified Code(s): H60.502 - Unspecified acute noninfective otitis externa, left ear Otitis media Qualifiers: Otitis media type: suppurative Chronicity: acute Laterality: left Recurrence: not specified as recurrent Spontaneous tympanic membrane rupture: with spontaneous rupture Qualified Code(s): H66.012 - Acute suppurative otitis media with spontaneous rupture of ear drum, left ear Sepsis Qualifiers: Sepsis type: sepsis due to unspecified organism Sepsis acute organ dysfunction status: unspecified Qualified Code(s): A41.9 - Sepsis, unspecified organism Condition: Fair Critical Care Time: Yes Critical Care Time(excluding separately billable procedures): Critical 75-104 mins Referrals: HOSPITAL,'[facility] [Primary Care Provider] -
[2021-02-23] MEDS ORDERED: Zofran 4 MG/2 ML VIAL ONE (18:19)
[2021-02-23] MEDS ORDERED: Zofran 4 MG/2 ML VIAL IV ONE (18:27)
[2021-02-23] MEDS ORDERED: Zosyn 3.375 GM Vial 3.375 GM in Sodium Chloride 100ML MINI-BAG PLUS 100 ML IV ONE (18:31)
[2021-02-23] MEDS ORDERED: VANCOMYCIN 2 GRAM/400 ML BAG 2 GM/400 ML PIGGYBACK IV ONE ×2 (18:33→18:54)
[2021-02-23] MEDS ORDERED: Zosyn 3.375 GM Vial IV ONE (18:53)
[2021-02-23] MEDS ORDERED: Sodium Chloride 100ML MINI-BAG PLUS 100 ML IV ONE (18:53)
[2021-02-23 18:55] LABS: A-aADO2 96; ABG HEMOGLOBIN 13.5; ABG POTASSIUM 3.5 (3.5-5.1); ARTERIAL BLD GAS O2 SATURATION 93.9 % (95-100); ARTERIAL BLOOD GAS BASE EXCESS 1.7 (-2.0-2.0); ARTERIAL BLOOD GAS FIO2 28 %; ARTERIAL BLOOD GAS PCO2 31 mmHg (35-45); ARTERIAL BLOOD GAS PO2 65 mmHg (75-100); CARBOXYHEMOGLOBIN 0.7 % THgb (0.0-6.9); HCO3- 24.2 (22-28); HGB O2 SAT 92.8 g/dF (94-100); Methhemoglobin 0.5 % (1.4-1.5)
[2021-02-23 18:56] LABS: ABG SITE LEFT BRACHIAL
[2021-02-23] MEDS ORDERED: FEVERALL 325 MG ONE (19:11)
[2021-02-23] MEDS ORDERED: FEVERALL 650 MG ONE (19:11)
[2021-02-23] MEDS ORDERED: FEVERALL 325 MG PR STA (19:25)
[2021-02-23] MEDS ORDERED: FEVERALL 650 MG PR ONE (19:25)
[2021-02-23] MEDS ORDERED: Ativan 2 MG/1 ML VIAL IV ONE ×2 (19:49→20:28)
[2021-02-23] MEDS ORDERED: Ativan 2 MG/1 ML VIAL ONE ×2 (19:50→20:29)
[2021-02-23 20:07] LABS: Appearance CLEAR (CLEAR); Bacteria NONE SEEN /HPF (NEGATIVE); Bilirubin NEGATIVE (NEGATIVE); Blood SMALL Ery/ul (0-5); Glucose NEGATIVE (NEGATIVE); Ketones NEGATIVE (NEGATIVE); Leukocyte Esterase NEGATIVE (NEGATIVE); Mucus SLIGHT /HPF (NEGATIVE); Nitrite NEGATIVE (NEGATIVE); Protein,Urine Dip 100 (Negative); RBC 0-2 /HPF (0-2); Specific Gravity 1.029 (1.005-1.025); Urobilinogen NEGATIVE mg/dL (0-1); WBC 0-2 /HPF (0-5)
--- NOTE | 2021-02-23 20:53 | XRAY ---
Indication: Altered mental status. Confusion. Memory loss and dizziness. Multiple contiguous axial images obtained through the head without contrast. Comparison: August 27, 2020. Stable age-appropriate global atrophy. No acute intracranial hemorrhage, abnormal extra-axial fluid collection, or mass effect. Fourth ventricle is midline without hydrocephalus. Bony calvarium intact. Visualized paranasal sinuses and mastoid air cells are clear. Impression: Continued negative CT head without contrast exam. Comment: Preliminary interpretation was made by [facility]. No critical discrepancy.
--- NOTE | 2021-02-23 20:53 | XRAY ---
Indication: Confusion and dizziness. Comparison: None Portable apical lordotic chest underinflated accentuating cardiopulmonary structures. No focal infiltrate, consolidation, or large effusion. Bony thorax intact. Impression: Nonacute underinflated chest.
--- NOTE | 2021-02-23 20:55 | XRAY ---
Indication: Confusion, fever, and acute mental status change. Comparison: Taken earlier in the day. Portable apical lordotic chest is more markedly underinflated without new cardiopulmonary abnormalities.
[2021-02-23 22:04] VITALS: BP 124/58; PULSE 64
[2021-02-23 22:08] VITALS: O2SAT 95
--- NOTE | 2021-02-24 07:41 | XRAY ---
Indication: Dizziness. Foul drainage left ear. Abnormal blood gas. Conventional contrast enhanced CTA neck performed using 100 cc Isovue 370 contrast. Sagittal and coronal reformatted images obtained. Comparison: None Visualized right carotid circulation demonstrates widely patent common carotid artery. At the level of bulb and proximal internal carotid artery, there is moderate eccentric calcified plaquing producing 50-60 % stenosis. Minimal eccentric calcified plaquing proximal external carotid artery. Visualized left carotid circulation demonstrates minimal distal common carotid artery calcified plaquing. At the level of the bulb and origin internal carotid artery, there is moderate eccentric calcified plaquing producing 50-60 % stenosis. Minimal plaquing at the origin of the external carotid artery. Vertebral arteries are bilaterally patent with the left slightly larger in caliber. No critical stenosis/obstruction. Visualized soft tissues demonstrates homogeneous enhancement parenchyma. A few tiny cervical lymph nodes bilaterally. No pathologic lymphadenopathy. Absent right submandibular gland presumed postsurgical. Remaining prided and left submandibular gland unremarkable. Cervical spine intact with mild/moderate multilevel degenerative spondylosis. Impression: Moderate bilateral calcified plaquing as detailed producing 40-50% stenosis. Comment: Preliminary interpretation was made by [facility]. No critical discrepancy.
--- NOTE | 2021-02-24 07:46 | XRAY ---
Indication: Dizziness. Foul drainage left ear. Abnormal blood gas. Conventional contrast enhanced CTA head performed using 100 cc Isovue 370 contrast. Sagittal and coronal reformatted images obtained. Comparison: None Both distal internal carotid arteries demonstrates mild calcifications at the level of the siphon without critical stenosis/obstruction. Normal carotid terminus with normal branching A1 and M1 segments bilaterally. More distal anterior cerebral and middle cerebral arteries are normal in CTA appearance. Basilar artery is normal in course and caliber. Normal branching posterior cerebral, superior cerebellar, and anterior inferior cerebellar arteries bilaterally. Venous system/sinuses are unremarkable. There is no abnormal enhancing intra-or extra-axial mass. Impression: 1. Bilateral carotid siphon calcifications without critical stenosis/obstruction. 2. Remaining CTA head is negative. Comment: Preliminary interpretation was made by [facility]. No critical discrepancy.
== END 2021-02-23 22:28 | disposition short-term general hospital (02) ==
LOC: ED 16:36
DX: G93.40 Encephalopathy, unspecified (principal); R42 Dizziness and giddiness; H60.502 Unspecified acute noninfective otitis externa, left ear; A41.9 Sepsis, unspecified organism; I25.810 Atherosclerosis of coronary artery bypass graft(s) without angina pectoris; I10 Essential (primary) hypertension; E78.5 Hyperlipidemia, unspecified; Z79.899 Other long term (current) drug therapy; E11.9 Type 2 diabetes mellitus without complications; Z86.73 Personal history of transient ischemic attack (TIA), and cerebral infarction without residual deficits
CPT/HCPCS: 36000; 36415; 36600; 51702; 70450; 70496; 70498; 71045; 80053; 81001; 82375; 82803; 82947; 83605; 83735; 83880; 84484; 85025; 87040; 87086; 93005; 93041; 96360; 96361; 96365; 96367; 96374; 96375; 96376; 99285; 99291; 99292; J2060; J2405; A9270-GY; J3370

== ENCOUNTER 2021-03-13 09:03 | Emergency (ER) | payer OTHER ==
[2021-03-13 09:27] LABS: Absolute Neutrophil Ct (ANC) 5.31 (1.4-6.9); BASOPHIL % 0.3 % (0.0-0.4); Basophil (Absolute #) 0.02 (0-0.4); Eosinophil % 0.1 % (0.00-5.0); Eosinophil (Absolute #) 0.01 (0-0.5); Hematocrit 41.9 % (42-50); Hemoglobin 13.9 gm/dl (12.5-18.0); Lymphocyte (Absolute #) 0.72 (1.0-4.6); Lymphocytes % 10.7 % (24.0-44.0); Mean Cell Volume 87.5 fl (78-100); Mean Corpuscular Hgb Concent. 33.2 g/dl (32-36); Mean Platelet Volume 10.5 fl (7.5-11.0); Monocyte (Absolute #) 0.65 (0.0-1.3); Monocytes % 9.7 % (0.0-12.0); Neutrophil % 79.2 % (36.0-66.0); Platelet Count 175 K/mm3 (150-450); Red Blood Count 4.79 M/mm3 (4.1-5.6); Red Cell Distribution Width 13.3 % (11.5-14.0); White Blood Count 6.7 K/mm3 (4.0-10.5)
[2021-03-13 09:40] LABS: ALBUMIN 4.2 g/dL (3.5-5.0); ALKALINE PHOSPHATASE 98 U/L (38-126); ANION GAP 14.8 MEQ/L (5-15); BLOOD UREA NITROGEN 17 mg/dL (9-20); CHLORIDE 104 mmol/L (98-107); Calcium 9.8 mg/dL (8.4-10.2); Carbon Dioxide 23 mmol/L (22-30); Creatinine 1 0.98 mg/dL (0.66-1.25); EST GLOMERULAR FILTRATION RATE > 60.0 ML/MIN; Glucose 184 mg/dL (74-106); Potassium 3.7 mmol/L (3.5-5.1); SGOT/AST 32 U/L (17-59); SGPT/ALT 21 U/L (0-50); SODIUM 138 mmol/L (137-145); Total Protein 7.4 g/dL (6.3-8.2)
--- NOTE | 2021-03-13 09:40 | ERPHSYRPT ---
- History of Present Illness Source: patient Exam Limitations: other (Poor historian) Patient Subjective Stated Complaint: "Confused and have a headache" Triage Nursing Assessment: Patient presents calm and cooperative but confused. Alert, oriented to self and place, unable to state month or year. GCS 14. Patient appears drowsy, but eye opening is spontaneous and patient obeys commands. PERRLA noted. Skin PWD. Skin feels slightly warm, temp 99.4F. No facial droop, speech impairment, or other stroke symptoms noted. Hypertensive, HR WNL, sinus rhythm noted. Patient reports headache, denies blurred vision. Physician History: 75 yo wm w confusion. Pt presented to ER after arriving to the hospital for a radiologic study which he was not scheduled. He states that he does not feel good and did not sleep last night. Pt states that he has had myalgias but denies fever/N/V/D/dyspnea/chest pain/focal weakness. Timing/Duration: other (Last night) Severity: mild Deficits: no difficulties Current Cognition: alert but confused Baseline Gait: walks w/o assistance Associated Symptoms: confusion, weakness, No fatigue, No fever, No chills, No loss of consciousness, No nausea, No vomiting, No insomnia, No muscle spasms, No numbness/tingling in legs/feet, No paresthesia, No ringing in ears, No seizures, No slurred speech, No trouble walking, No vision changes, No chest pain Allergies/Adverse Reactions: No Known Drug Allergies Allergy (Verified 03/13/21 09:21) Home Medications: ALPRAZolam 0.25 MG [xanAX 0.25 MG] 0.25 mg PO BID 02/23/21 [History] Amlodipine Besylate [Norvasc] 10 mg PO DAILY 02/23/21 [History] Aspirin EC 81 mg [Ecotrin 81 mg] 81 mg PO DAILY 02/23/21 [History] Atorvastatin Calcium [Lipitor] 40 mg PO DAILY 02/23/21 [History] Bisacodyl 5 mg [Dulcolax 5 mg] 5 mg PO DAILY 02/23/21 [History] Duloxetine HCl 30 mg [Cymbalta 30 MG Capsule] 90 mg PO DAILY 02/23/21 [History] Ergocalciferol (Vitamin D2) [Vitamin D2] 50,000 unit PO WEEKLY 02/23/21 [History] Finasteride 5 mg [Proscar 5 MG] 5 mg PO DAILY 02/23/21 [History] Fish Oil/Dha/Epa [Fish Oil 1,200 mg Fish Oil] 1 each PO DAILY 02/23/21 [History] Ketoconazole [Nizoral A-D] 1 ml TP 3XW 02/23/21 [History] Ketorolac Tromethamine 0.5% [Acular OPTH MAKENNA] 1 ml OP UD 02/23/21 [History] Metformin HCl 1,000 mg PO BID 02/23/21 [History] Metoprolol Tartrate 100 mg PO BID 02/23/21 [History] Naproxen 500 mg [Naprosyn 500 MG] 500 mg PO DAILY 02/23/21 [History] Oxybutynin Chloride 5 mg PO TID 02/23/21 [History] glipiZIDE [Glucotrol] 20 mg PO BID 02/23/21 [History] hydroCHLOROthiazide [Hydrochlorothiazide] 25 mg PO DAILY 02/23/21 [History] Hx Influenza Vaccination/Date Given: Yes Hx Pneumococcal Vaccination/Date Given: Yes Travel Risk - International Travel Have you traveled outside of the country in past 3 weeks: No - Coronavirus Screening Are you exhibiting any of the following symptoms?: Yes Symptoms: Headaches/Body Aches/Fatigue Close contact with a COVID-19 positive Pt in past 14-21 Days: No - Vaccine Status Have you recieved a Covid-19 vaccination: Yes Continuous Improvement Intern: Unknown - Vaccination Dates Date of 2cond Vaccination (if applicable): 03/11/2021 Dates if Unknown: n/a Comment: pt presents to ER confused, is able to report to staff that he had 2nd covid vaccine on 03/11, unable to state which brand of vaccine/when first dose was - Review of Systems Constitutional: No Symptoms Eyes: No Symptoms Ears, Nose, & Throat: No Symptoms Respiratory: No Symptoms Cardiac: No Symptoms Abdominal/Gastrointestinal: No Symptoms Genitourinary Symptoms: No Symptoms Musculoskeletal: No Symptoms, Myalgias Skin: No Symptoms Neurological: No Symptoms Psychological: No Symptoms Endocrine: No Symptoms Hematologic/Lymphatic: No Symptoms Immunological/Allergic: No Symptoms - Past Medical History Pertinent Past Medical History: Yes Neurological History: Stroke, TIA ENT History: No Pertinent History Cardiac History: Coronary Artery Disease, High Cholesterol, Hypertension Respiratory History: No Pertinent History Endocrine Medical History: Diabetes Type II Musculoskeletal History: No Pertinent History GI Medical History: No Pertinent History History: No Pertinent History Psycho-Social History: No Pertinent History Male Reproductive Disorders: Other Other Medical History: unrinay incontinence, shrap - Past Surgical History Past Surgical History: Yes Neuro Surgical History: No Pertinent History Cardiac: Angioplasty Respiratory: Tracheostomy Gastrointestinal: Cholecystectomy Genitourinary: No Pertinent History Musculoskeletal: No Pertinent History Male Surgical History: No Pertinent History Other Surgical History: repairs from [place] in [facility], pt has shrapnal throughout his body. - Social History Smoking Status: Former smoker Exposure to second hand smoke: No Drug Use: none Patient Lives Alone: Yes Significant Family History: no pertinent family hx - Nursing Vital Signs Nursing Vital Signs: Initial Vital Signs Temperature 99.4 F 03/13/21 09:06 Pulse Rate 98 H 03/13/21 09:06 Respiratory Rate 24 03/13/21 09:06 Blood Pressure 179/93 03/13/21 09:06 O2 Sat by Pulse Oximetry 93 L 03/13/21 09:06 Pain Scale Pain Intensity 2 - Berthold Coma Scale Best Eye Response (Yani): (4) open spontaneously Best Verbal Response (Berthold): (5) oriented Best Motor Response (Yani): (6) obeys commands Yani Total: 15 - Physical Exam General Appearance: no apparent distress Eye Exam: bilateral eye: normal inspection, PERRL, EOMI Ears, Nose, Throat Exam: normal ENT inspection, TMs normal, pharynx normal, moist mucous membranes Neck Exam: normal inspection, non-tender, supple, full range of motion, No meningismus, No mass, No Brudzinski, No Kernig's, No carotid bruit Respiratory: normal breath sounds, lungs clear, airway intact, No respiratory distress Cardiovascular: regular rate/rhythm, normal heart sounds, normal peripheral pulses, No murmur Gastrointestinal: soft, normal bowel sounds, No tenderness, No distention, No mass Back Exam: normal inspection, normal range of motion, No CVA tenderness, No vertebral tenderness Extremity Exam: normal inspection, normal range of motion, pelvis stable Peripheral Pulses: carotid (R): 2+, carotid (L): 2+ Mental Status: alert, 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, cooperative, other (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 for nursing, 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, normal speech, PERRL Coordination/Gait: normal finger to nose, normal gait Motor/Sensory: no motor deficit, no sensory deficit, no pronator drift, negative Babinski's sign DTR: bicep (R): 2+, bicep (L): 2+ Skin Exam: normal color, warm, dry SpO2 Interpretation: borderline oxygenation SpO2: 93 O2 Delivery: Room Air - Course Nursing assessment & vital signs reviewed: Yes - Radiology Exams Chest X-ray Interpretation: Discussed w/ radiologist (CXR neg per Rad) - CT Exams Head CT Interpretation: Discussed w/radiologist (NAD per Rad) Ordered Tests: Active Orders 24 hr Category Date Time Status IV Insertion STAT Care 03/13/21 09:08 Completed CHEST 1 VIEW (PORTABLE) Stat Exams 03/13/21 09:39 Completed HEAD WITHOUT CONTRAST [CT] Stat Exams 03/13/21 09:39 Completed CBC W DIFF Stat Lab 03/13/21 09:15 Completed CMP Stat Lab 03/13/21 09:15 Completed CULTURE,URINE Stat Lab 03/13/21 09:40 Received Lactic Acid Stat Lab 03/13/21 09:08 Completed TROPONIN Q3H Lab 03/13/21 09:15 Completed UA W/RFX UR CULTURE Stat Lab 03/13/21 09:40 Completed Lab/Rad Data: Laboratory Result Diagrams 03/13/21 09:15 03/13/21 09:15 Laboratory Results 03/13/21 03/13/21 03/13/21 Range/Units 09:40 09:15 09:15 WBC (4.0-10.5) K/mm3 RBC (4.1-5.6) M/mm3 Hgb (12.5-18.0) gm/dl Hct (42-50) % MCV (78-100) fl MCH (26-32) pg MCHC (32-36) g/dl RDW (11.5-14.0) % Plt Count (150-450) K/mm3 MPV (7.5-11.0) fl Gran % (36.0-66.0) % Eos # (Auto) (0-0.5) Absolute Lymphs (auto) (1.0-4.6) Absolute Monos (auto) (0.0-1.3) Lymphocytes % (24.0-44.0) % Monocytes % (0.0-12.0) % Eosinophils % (0.00-5.0) % Basophils % (0.0-0.4) % Absolute Granulocytes (1.4-6.9) Basophils # (0-0.4) Sodium 138 (137-145) mmol/L Potassium 3.7 (3.5-5.1) mmol/L Chloride 104 (98-107) mmol/L Carbon Dioxide 23 (22-30) mmol/L Anion Gap 14.8 (5-15) MEQ/L BUN 17 (9-20) mg/dL Creatinine 0.98 (0.66-1.25) mg/dL Estimated GFR > 60.0 ML/MIN Glucose 184 H (74-106) mg/dL Lactic Acid (0.4-2.0) Calcium 9.8 (8.4-10.2) mg/dL Total Bilirubin 0.60 (0.2-1.3) mg/dL AST 32 (17-59) U/L ALT 21 (0-50) U/L Alkaline Phosphatase 98 (38-126) U/L Troponin I 0.034 (0.000-0.034) ng/mL Serum Total Protein 7.4 (6.3-8.2) g/dL Albumin 4.2 (3.5-5.0) g/dL Urine Color YELLOW (YELLOW) Urine Appearance CLEAR (CLEAR) Urine pH 5.0 (5-6) Ur Specific Mcfarland 1.020 (1.005-1.025) Urine Protein >=500 (Negative) Urine Ketones NEGATIVE (NEGATIVE) Urine Blood SMALL (0-5) Nathan/ul Urine Nitrite NEGATIVE (NEGATIVE) Urine Bilirubin NEGATIVE (NEGATIVE) Urine Urobilinogen NEGATIVE (0-1) mg/dL Ur Leukocyte Esterase NEGATIVE (NEGATIVE) Urine WBC (Auto) 0-2 (0-5) /HPF Urine RBC (Auto) 0-2 (0-2) /HPF U Epithel Cells (Auto) RARE (FEW) /HPF Urine Bacteria (Auto) RARE (NEGATIVE) /HPF Urine Mucus (Auto) SLIGHT (NEGATIVE) /HPF Urine Culture Reflexed YES (NO) Urine Glucose NEGATIVE (NEGATIVE) mg/dL 03/13/21 03/13/21 Range/Units 09:15 09:08 WBC 6.7 (4.0-10.5) K/mm3 RBC 4.79 (4.1-5.6) M/mm3 Hgb 13.9 (12.5-18.0) gm/dl Hct 41.9 L (42-50) % MCV 87.5 (78-100) fl MCH 29.0 (26-32) pg MCHC 33.2 (32-36) g/dl RDW 13.3 (11.5-14.0) % Plt Count 175 (150-450) K/mm3 MPV 10.5 (7.5-11.0) fl Gran % 79.2 H (36.0-66.0) % Eos # (Auto) 0.01 (0-0.5) Absolute Lymphs (auto) 0.72 L (1.0-4.6) Absolute Monos (auto) 0.65 (0.0-1.3) Lymphocytes % 10.7 L (24.0-44.0) % Monocytes % 9.7 (0.0-12.0) % Eosinophils % 0.1 (0.00-5.0) % Basophils % 0.3 (0.0-0.4) % Absolute Granulocytes 5.31 (1.4-6.9) Basophils # 0.02 (0-0.4) Sodium (137-145) mmol/L Potassium (3.5-5.1) mmol/L Chloride (98-107) mmol/L Carbon Dioxide (22-30) mmol/L Anion Gap (5-15) MEQ/L BUN (9-20) mg/dL Creatinine (0.66-1.25) mg/dL Estimated GFR ML/MIN Glucose (74-106) mg/dL Lactic Acid 1.5 (0.4-2.0) Calcium (8.4-10.2) mg/dL Total Bilirubin (0.2-1.3) mg/dL AST (17-59) U/L ALT (0-50) U/L Alkaline Phosphatase (38-126) U/L Troponin I (0.000-0.034) ng/mL Serum Total Protein (6.3-8.2) g/dL Albumin (3.5-5.0) g/dL Urine Color (YELLOW) Urine Appearance (CLEAR) Urine pH (5-6) Ur Specific Mcfarland (1.005-1.025) Urine Protein (Negative) Urine Ketones (NEGATIVE) Urine Blood (0-5) Nathan/ul Urine Nitrite (NEGATIVE) Urine Bilirubin (NEGATIVE) Urine Urobilinogen (0-1) mg/dL Ur Leukocyte Esterase (NEGATIVE) Urine WBC (Auto) (0-5) /HPF Urine RBC (Auto) (0-2) /HPF U Epithel Cells (Auto) (FEW) /HPF Urine Bacteria (Auto) (NEGATIVE) /HPF Urine Mucus (Auto) (NEGATIVE) /HPF Urine Culture Reflexed (NO) Urine Glucose (NEGATIVE) mg/dL - Progress Progress Note: 03/13/21 10:44 Pt wo source of infection or evidence of sepsis. Pt alert and 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 wo focal weakness or evidence of CVA. Pt was not getting an XR but was getting Rocephin injection. Rocephin given in ER. 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 Counseled pt/family regarding: diagnosis, need for follow-up, rad results - Departure Departure Disposition: Home Clinical Impression: Confusion Condition: Stable Critical Care Time: No Referrals: HOSPITAL,'S [Primary Care Provider] - Instructions: Delirium (Confusion) (DC), Dementia (DC) Additional Instructions: Follow up with PCP in 1-2 days Return to ER for focal weakness or temperature greater than 100.5
--- NOTE | 2021-03-13 09:53 | XRAY ---
Indication: Confusion. Multiple contiguous axial images obtained through the head without contrast. Comparison: February 23, 2021. 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 No acute intracranial hemorrhage, abnormal extra-axial fluid collection, or mass effect. Fourth ventricle is midline without hydrocephalus. Bony calvarium intact. Visualized paranasal sinuses and mastoid air cells are clear. Impression: Continued negative CT head without contrast exam.
--- NOTE | 2021-03-13 09:55 | XRAY ---
Indication: Confusion. Comparison: February 23, 2021. Portable chest better inflated and slightly rotated. No focal infiltrate, consolidation, or large effusion. Heart not enlarged. Impression: Continued nonacute chest.
[2021-03-13 09:58] LABS: Appearance CLEAR (CLEAR); Bacteria RARE /HPF (NEGATIVE); Bilirubin NEGATIVE (NEGATIVE); Blood SMALL Ery/ul (0-5); Epithelial Cells RARE /HPF (FEW); Glucose NEGATIVE (NEGATIVE); Ketones NEGATIVE (NEGATIVE); Leukocyte Esterase NEGATIVE (NEGATIVE); Mucus SLIGHT /HPF (NEGATIVE); Nitrite NEGATIVE (NEGATIVE); Protein,Urine Dip >=500 (Negative); RBC 0-2 /HPF (0-2); Urobilinogen NEGATIVE mg/dL (0-1); WBC 0-2 /HPF (0-5)
[2021-03-13 10:40] VITALS: BP 170/72; PULSE 94
[2021-03-13 10:49] VITALS: O2SAT 93
== END 2021-03-13 10:55 | disposition home or self-care (01) ==
LOC: ED 09:03
DX: R41.0 Disorientation, unspecified (principal); R51.9 Headache, unspecified; Z79.899 Other long term (current) drug therapy; I10 Essential (primary) hypertension; E78.00 Pure hypercholesterolemia, unspecified; I25.10 Atherosclerotic heart disease of native coronary artery without angina pectoris; Z86.73 Personal history of transient ischemic attack (TIA), and cerebral infarction without residual deficits; E11.9 Type 2 diabetes mellitus without complications
CPT/HCPCS: 36000; 36415; 70450; 71045; 80053; 81001; 83605; 84484; 85025; 87086; 99284

== ENCOUNTER 2021-04-05 05:40 | Observation (INO) | payer OTHER ==
[2021-04-05] MEDS ORDERED: Zofran 4 MG/2 ML VIAL ONE (05:57)
[2021-04-05] MEDS ORDERED: Zofran 4 MG/2 ML VIAL IV ONE (06:15)
--- NOTE | 2021-04-05 06:22 | ERPHSYRPT ---
- History of Present Illness Time Seen by Provider: 04/05/21 06:10 Source: patient Exam Limitations: no limitations Physician History: Patient is a 75-year-old male presents to our ED with his daughter for evaluation of a severe headache. Patient stated to ER MD that his headache started yesterday afternoon. However he told nursing staff that his headache started yesterday evening at approximately yesterday night at 2300. Patient called his daughter at approximately 4 AM with complaints of severe headache. He reportedly vomited 3 times. Patient has a history of TIA stroke per record. Patient states the headache is severe. He is tearful. Headache originates at the back of his head and radiates towards the front. Nursing staff felt patient was confused however patient answering questions appropriately for ER MD. He is hard of hearing. Patient able to relate that he had his second Covid vaccine on 517. He is somewhat hard of hearing. Symptoms are moderate in intensity. No specific worsening improving factors. Patient took his meds this morning including an aspirin 81 mg. Patient's blood pressure observed to be elevated. Patient daughter voiced no other complaints concerns at this time. Timing/Duration: yesterday Severity: moderate Character of Deficits: Left Facial, LUE Deficits: no difficulties Baseline/Normal Cognition: alert 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 Current Cognition: alert 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 Baseline Gait: walks w/o assistance Associated Symptoms: nausea, vomiting, paresthesia, headache, No fever, No chills, No loss of consciousness, No vision changes, No chest pain Allergies/Adverse Reactions: No Known Drug Allergies Allergy (Verified 04/05/21 05:42) Home Medications: ALPRAZolam 0.25 MG [xanAX 0.25 MG] 0.25 mg PO BID PRN 02/23/21 [History] Aspirin EC 81 mg [Ecotrin 81 mg] 81 mg PO DAILY 02/23/21 [History] Atorvastatin Calcium [Lipitor] 40 mg PO DAILY 02/23/21 [History] Bisacodyl 5 mg [Dulcolax 5 mg] 5 mg PO DAILY PRN 02/23/21 [History] Duloxetine HCl 30 mg [Cymbalta 30 MG Capsule] 90 mg PO DAILY 02/23/21 [History] Ergocalciferol (Vitamin D2) [Vitamin D2] 50,000 unit PO WEEKLY 02/23/21 [History] Finasteride 5 mg [Proscar 5 MG] 5 mg PO DAILY 02/23/21 [History] Fish Oil/Dha/Epa [Fish Oil 1,200 mg Fish Oil] 2 each PO BID 02/23/21 [History] Ketoconazole [Nizoral A-D] 1 ml TP 3XW PRN 02/23/21 [History] Metformin HCl 1,000 mg PO BID 02/23/21 [History] Metoprolol Tartrate 100 mg PO BID 02/23/21 [History] glipiZIDE [Glucotrol] 20 mg PO BID 02/23/21 [History] Losartan Potassium 50 mg [Cozaar 50 MG] 50 mg PO DAILY 04/05/21 [History] Omeprazole 40 mg PO DAILY 04/05/21 [History] Triamcinolone Acetonide [Triderm] 28.4 gm TP BID PRN 04/05/21 [History] Hx Influenza Vaccination/Date Given: Yes Hx Pneumococcal Vaccination/Date Given: Yes Travel Risk - Vaccine Status Have you recieved a Covid-19 vaccination: Yes 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 - Vaccination Dates Date of 2cond Vaccination (if applicable): 03/11/2021 Dates if Unknown: n/a Comment: pt presents to ER confused, is able to report to staff that he had 2nd covid vaccine on 03/11, unable to state which brand of vaccine/when first dose was - Review of Systems Constitutional: No Symptoms, No Fever, No Chills Eyes: No Symptoms Ears, Nose, & Throat: No Symptoms Respiratory: No Symptoms, No Cough, No Dyspnea Cardiac: No Symptoms, No Chest Pain, No Edema, No Syncope Abdominal/Gastrointestinal: No Symptoms, No Abdominal Pain, No Nausea, No Vomiting, No Diarrhea Genitourinary Symptoms: No Symptoms, No Dysuria Musculoskeletal: No Symptoms, No Back Pain, No Neck Pain Skin: No Symptoms, No Rash Neurological: No Symptoms, No Dizziness, No Focal Weakness, No Sensory Changes Psychological: No Symptoms Endocrine: No Symptoms Hematologic/Lymphatic: No Symptoms Immunological/Allergic: No Symptoms All Other Systems: Reviewed and Negative - Past Medical History Pertinent Past Medical History: Yes Neurological History: Stroke, TIA ENT History: No Pertinent History Cardiac History: Coronary Artery Disease, High Cholesterol, Hypertension Respiratory History: No Pertinent History Endocrine Medical History: Diabetes Type II Musculoskeletal History: No Pertinent History GI Medical History: No Pertinent History History: No Pertinent History Psycho-Social History: No Pertinent History Male Reproductive Disorders: Other Other Medical History: unrinay incontinence, shrap - Past Surgical History Past Surgical History: Yes Neuro Surgical History: No Pertinent History Cardiac: Angioplasty Respiratory: Tracheostomy Gastrointestinal: Cholecystectomy Genitourinary: No Pertinent History Musculoskeletal: No Pertinent History Male Surgical History: No Pertinent History Other Surgical History: repairs from [facility] in [facility], pt has shrapnal throughout his body. - Social History Smoking Status: Former smoker Exposure to second hand smoke: No Drug Use: none Patient Lives Alone: Yes Significant Family History: no pertinent family hx - Nursing Vital Signs Nursing Vital Signs: Initial Vital Signs Temperature 97.6 F 04/05/21 05:42 Pulse Rate 76 04/05/21 05:42 Respiratory Rate 24 04/05/21 05:42 Blood Pressure 227/130 04/05/21 05:42 O2 Sat by Pulse Oximetry 98 04/05/21 05:42 Pain Scale Pain Intensity 5 - [place] Coma Scale Best Eye Response ([place]): (4) open spontaneously Best Verbal Response ([place]): (5) oriented Best Motor Response ([place]): (6) obeys commands Yani Total: 15 - Physical Exam General Appearance: mild distress (Mild discomfort due to headache.), alert Eye Exam: bilateral eye: normal inspection, PERRL, EOMI Ears, Nose, Throat Exam: normal ENT inspection, moist mucous membranes Neck Exam: normal inspection, non-tender, supple Respiratory: normal breath sounds, lungs clear, airway intact, No respiratory distress Cardiovascular: regular rate/rhythm, No edema Gastrointestinal: soft, No tenderness, No distention Back Exam: normal inspection Extremity Exam: normal inspection, normal range of motion, pelvis stable, other (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 Exam: normal hearing, normal speech, PERRL, facial droop, tongue midline, No abnormal eye position, No abnormal pupil position Coordination/Gait: normal finger to nose, normal cerebellar function Motor/Sensory: no motor deficit, no sensory deficit, no pronator drift Skin Exam: normal color, warm, dry, No rash SpO2 Interpretation: normal SpO2: 94 O2 Delivery: Room Air - Course Nursing assessment & vital signs reviewed: Yes EKG Interpreted by Me: RATE (78), Sinus Rhythm, NORMAL AXIS, NORMAL INTERVALS - CT Exams Head CT Interpretation: Tele-radiologist Report (Atrophy and the sequela of prior small vessel ischemia. No acute intracranial abnormality) Ordered Tests: Active Orders 24 hr Category Date Time Status Office Cashier STAT Care 04/05/21 06:00 Active EKG-ER Only STAT Care 04/05/21 05:59 Active IV Insertion STAT Care 04/05/21 05:59 Active NPO (ED) STAT Care 04/05/21 06:01 Active Pulse Oximetry (ED) STAT Care 04/05/21 05:[address] ANGIOGRAPHY NECK [CT] Stat Exams 04/05/21 06:38 Ordered CTA HEAD W AND/OR WO CONTRAST [CT] Stat Exams 04/05/21 06:43 Ordered HEAD WITHOUT CONTRAST [CT] Stat Exams 04/05/21 05:52 Taken CBC W DIFF Stat Lab 04/05/21 06:13 Completed CMP Stat Lab 04/05/21 06:13 Completed TROPONIN Q3H Lab 04/05/21 06:13 Completed TROPONIN Q3H Lab 04/05/21 09:00 Ordered TROPONIN Q3H Lab 04/05/21 12:00 Ordered TROPONIN Q3H Lab 04/05/21 15:00 Ordered TROPONIN Q3H Lab 04/05/21 18:00 Ordered UA W/RFX UR CULTURE Stat Lab 04/05/21 06:00 Completed Medication Summary Discontinued Medications Generic Name Dose Route Start Last Admin Trade Name Freq PRN Reason Stop Dose Admin Aspirin 243 mg 04/05/21 06:31 04/05/21 06:32 Baby Aspirin 81 Mg Chew PO 04/05/21 06:32 243 mg STAT ONE Administration Aspirin Confirm 04/05/21 06:32 Baby Aspirin 81 Mg Chew Administered 04/05/21 06:33 Dose 243 mg .ROUTE .STK-MED ONE Ondansetron HCl Confirm 04/05/21 05:57 Zofran 4 Mg/2 Ml Vial Administered 04/05/21 05:58 Dose 4 mg .ROUTE .STK-MED ONE Ondansetron HCl 4 mg 04/05/21 06:15 04/05/21 06:16 Zofran 4 Mg/2 Ml Vial IV 04/05/21 06:16 4 mg STAT ONE Administration Lab/Rad Data: Laboratory Result Diagrams 04/05/21 06:13 04/05/21 06:13 Laboratory Results 04/05/21 04/05/21 04/05/21 Range/Units 06:13 06:13 06:13 WBC 9.4 (4.0-10.5) K/mm3 RBC 5.07 (4.1-5.6) M/mm3 Hgb 14.6 (12.5-18.0) gm/dl Hct 43.3 (42-50) % MCV 85.4 (78-100) fl MCH 28.8 (26-32) pg MCHC 33.7 (32-36) g/dl RDW 13.2 (11.5-14.0) % Plt Count 245 (150-450) K/mm3 MPV 10.7 (7.5-11.0) fl Gran % 76.7 H (36.0-66.0) % Eos # (Auto) 0.12 (0-0.5) Absolute Lymphs (auto) 1.53 (1.0-4.6) Absolute Monos (auto) 0.53 (0.0-1.3) Lymphocytes % 16.3 L (24.0-44.0) % Monocytes % 5.6 (0.0-12.0) % Eosinophils % 1.3 (0.00-5.0) % Basophils % 0.1 (0.0-0.4) % Absolute Granulocytes 7.21 H (1.4-6.9) Basophils # 0.01 (0-0.4) Sodium 135 L (137-145) mmol/L Potassium 4.0 (3.5-5.1) mmol/L Chloride 99 (98-107) mmol/L Carbon Dioxide 27 (22-30) mmol/L Anion Gap 12.8 (5-15) MEQ/L BUN 22 H (9-20) mg/dL Creatinine 0.94 (0.66-1.25) mg/dL Estimated GFR > 60.0 ML/MIN Glucose 242 H (74-106) mg/dL Calcium 10.3 H (8.4-10.2) mg/dL Total Bilirubin 0.60 (0.2-1.3) mg/dL AST 28 (17-59) U/L ALT 20 (0-50) U/L Alkaline Phosphatase 100 (38-126) U/L Troponin I < 0.012 (0.000-0.034) ng/mL Serum Total Protein 7.5 (6.3-8.2) g/dL Albumin 4.4 (3.5-5.0) g/dL Urine Color (YELLOW) Urine Appearance (CLEAR) Urine pH (5-6) Ur Specific [place] (1.005-1.025) Urine Protein (Negative) Urine Ketones (NEGATIVE) Urine Blood (0-5) Nathan/ul Urine Nitrite (NEGATIVE) Urine Bilirubin (NEGATIVE) Urine Urobilinogen (0-1) mg/dL Ur Leukocyte Esterase (NEGATIVE) Urine WBC (Auto) (0-5) /HPF Urine RBC (Auto) (0-2) /HPF U Hyaline Cast (Auto) (0-2) /LPF U Epithel Cells (Auto) (FEW) /HPF Urine Bacteria (Auto) (NEGATIVE) /HPF Urine Culture Reflexed (NO) Urine Glucose (NEGATIVE) mg/dL 04/05/21 Range/Units 06:00 WBC (4.0-10.5) K/mm3 RBC (4.1-5.6) M/mm3 Hgb (12.5-18.0) gm/dl Hct (42-50) % MCV (78-100) fl MCH (26-32) pg MCHC (32-36) g/dl RDW (11.5-14.0) % Plt Count (150-450) K/mm3 MPV (7.5-11.0) fl Gran % (36.0-66.0) % Eos # (Auto) (0-0.5) Absolute Lymphs (auto) (1.0-4.6) Absolute Monos (auto) (0.0-1.3) Lymphocytes % (24.0-44.0) % Monocytes % (0.0-12.0) % Eosinophils % (0.00-5.0) % Basophils % (0.0-0.4) % Absolute Granulocytes (1.4-6.9) Basophils # (0-0.4) Sodium (137-145) mmol/L Potassium (3.5-5.1) mmol/L Chloride (98-107) mmol/L Carbon Dioxide (22-30) mmol/L Anion Gap (5-15) MEQ/L BUN (9-20) mg/dL Creatinine (0.66-1.25) mg/dL Estimated GFR ML/MIN Glucose (74-106) mg/dL Calcium (8.4-10.2) mg/dL Total Bilirubin (0.2-1.3) mg/dL AST (17-59) U/L ALT (0-50) U/L Alkaline Phosphatase (38-126) U/L Troponin I (0.000-0.034) ng/mL Serum Total Protein (6.3-8.2) g/dL Albumin (3.5-5.0) g/dL Urine Color STRAW (YELLOW) Urine Appearance CLEAR (CLEAR) Urine pH 7.0 (5-6) Ur Specific [place] 1.014 (1.005-1.025) Urine Protein >=500 (Negative) Urine Ketones NEGATIVE (NEGATIVE) Urine Blood NEGATIVE (0-5) Nathan/ul Urine Nitrite NEGATIVE (NEGATIVE) Urine Bilirubin NEGATIVE (NEGATIVE) Urine Urobilinogen NEGATIVE (0-1) mg/dL Ur Leukocyte Esterase NEGATIVE (NEGATIVE) Urine WBC (Auto) 0-2 (0-5) /HPF Urine RBC (Auto) 6-10 (0-2) /HPF U Hyaline Cast (Auto) 3-5 (0-2) /LPF U Epithel Cells (Auto) RARE (FEW) /HPF Urine Bacteria (Auto) NONE (NEGATIVE) /HPF Urine Culture Reflexed NO (NO) Urine Glucose 150 (NEGATIVE) mg/dL - Progress Progress: improved Progress Note: 04/05/21 06:21 NIH score is 3 04/05/21 06:54 CT head negative for acute intracranial pathology. Patient received aspirin 243 mg. He took 81 mg this morning. Patient's blood pressure improved from 220 systolic to 185 systolic at this time. Patient states his headache has improved as well. CT angio of head and neck ordered. However at this time teleneuro has been consulted. We will move forward with CT angio after teleneuro consultation. It is currently change of shift. Patient endorsed to incoming physician Dr. Wren who will make final disposition. [facility] therefore we will need to [facility] with the [facility] prior to admission if admission is indicated. Most of the labs are pending. CBC has returned however. 04/05/21 06:57 04/05/21 07:03 Counseled pt/family regarding: diagnosis, rad results - Departure Clinical Impression: Migraine headache, Hypertension Condition: Stable Critical Care Time: No Referrals: [facility]OSPITAL,'S [Primary Care Provider] -
[2021-04-05 06:27] LABS: Absolute Neutrophil Ct (ANC) 7.21 (1.4-6.9); BASOPHIL % 0.1 % (0.0-0.4); Basophil (Absolute #) 0.01 (0-0.4); Eosinophil % 1.3 % (0.00-5.0); Eosinophil (Absolute #) 0.12 (0-0.5); Hematocrit 43.3 % (42-50); Hemoglobin 14.6 gm/dl (12.5-18.0); Lymphocyte (Absolute #) 1.53 (1.0-4.6); Lymphocytes % 16.3 % (24.0-44.0); Mean Cell Volume 85.4 fl (78-100); Mean Corpuscular Hemoglobin 28.8 pg (26-32); Mean Corpuscular Hgb Concent. 33.7 g/dl (32-36); Mean Platelet Volume 10.7 fl (7.5-11.0); Monocyte (Absolute #) 0.53 (0.0-1.3); Monocytes % 5.6 % (0.0-12.0); Neutrophil % 76.7 % (36.0-66.0); Platelet Count 245 K/mm3 (150-450); Red Blood Count 5.07 M/mm3 (4.1-5.6); Red Cell Distribution Width 13.2 % (11.5-14.0); White Blood Count 9.4 K/mm3 (4.0-10.5)
[2021-04-05] MEDS ORDERED: BABY ASPIRIN 81 MG CHEW PO ONE (06:31)
[2021-04-05] MEDS ORDERED: BABY ASPIRIN 81 MG CHEW ONE (06:32)
[2021-04-05 06:42] LABS: Appearance CLEAR (CLEAR); Bilirubin NEGATIVE (NEGATIVE); Blood NEGATIVE Ery/ul (0-5); Epithelial Cells RARE /HPF (FEW); Glucose 150 mg/dL (NEGATIVE); Ketones NEGATIVE (NEGATIVE); Leukocyte Esterase NEGATIVE (NEGATIVE); Nitrite NEGATIVE (NEGATIVE); Protein,Urine Dip >=500 (Negative); Specific Gravity 1.014 (1.005-1.025); Urobilinogen NEGATIVE mg/dL (0-1); WBC 0-2 /HPF (0-5)
[2021-04-05 06:45] LABS: ALBUMIN 4.4 g/dL (3.5-5.0); ALKALINE PHOSPHATASE 100 U/L (38-126); ANION GAP 12.8 MEQ/L (5-15); BLOOD UREA NITROGEN 22 mg/dL (9-20); CHLORIDE 99 mmol/L (98-107); Calcium 10.3 mg/dL (8.4-10.2); Carbon Dioxide 27 mmol/L (22-30); Creatinine 1 0.94 mg/dL (0.66-1.25); EST GLOMERULAR FILTRATION RATE > 60.0 ML/MIN; Glucose 242 mg/dL (74-106); SGOT/AST 28 U/L (17-59); SGPT/ALT 20 U/L (0-50); SODIUM 135 mmol/L (137-145); Total Protein 7.5 g/dL (6.3-8.2)
[2021-04-05] MEDS ORDERED: HOLD METFORMIN PRODUCTS FOR 48 HOURS MC SCH (07:30)
--- NOTE | 2021-04-05 08:42 | XRAY ---
Indication: Left facial droop and right frontal headache. Multiple contiguous axial images obtained through the head without contrast. Comparison: March 13, 2021. Stable age-appropriate global atrophy, minimal periventricular degenerative micro-ischemia, and metallic foreign body deep left motorcycle maker space. Again no acute intracranial hemorrhage, abnormal extra-axial fluid collection, or mass effect. Fourth ventricle is midline without hydrocephalus. Bony calvarium intact. Visualized paranasal sinuses and mastoid air cells are clear. Impression: Continued nonacute senile brain. Comment: Preliminary interpretation made by [facility]. No critical discrepancy.
--- NOTE | 2021-04-05 08:43 | XRAY ---
Indication: Left facial droop and right frontal headache. Two-dimensional contrast enhanced CTA neck performed using 80 cc Isovue 370 contrast. Two-dimensional sagittal and coronal reformatted images obtained. Additional 3-dimensional reformatted images obtained using separate workstation. Comparison: February 23, 2021. Visualized aortic arch normal in course and caliber with normal branching right brachiocephalic, left common carotid, and left subclavian arteries. Minimal arteriosclerotic calcification seen of the aortic arch and origin of the left common carotid and subclavian arteries. Examination of the right carotid circulation again demonstrates widely patent common carotid artery. Carotid bulb and proximal internal carotid artery demonstrates stable moderate eccentric calcified plaque in producing 50-60% stenosis. Stable minimal eccentric calcified plaquing proximal external carotid artery. Examination of the left carotid circulation again demonstrates minimal distal common carotid artery calcified plaquing. At the level global and origin internal carotid artery, there is stable moderate eccentric calcified plaque in producing 50-60% stenosis. Stable minimal plaquing origin of external carotid artery. Vertebral arteries remain bilaterally patent with the left slightly larger in caliber. Visualized soft tissues again demonstrates a few tiny cervical lymph nodes bilaterally none pathologically enlarged. Again surgically absent right submandibular gland. Remaining parotid, left submandibular gland and thyroid unremarkable. Supra-and infraglottic airway remains widely patent. Cervical spine intact again with mild/moderate multilevel degenerative spondylosis. Lung apices are clear. Impression: No change compared to CTA neck February 23, 2021 again demonstrating moderate bilateral calcific plaquing as detailed producing 50-60% stenosis. No new/acute findings.
--- NOTE | 2021-04-05 08:48 | XRAY ---
Indication: Left facial droop and right frontal headache. Two-dimensional contrast enhanced CTA head performed using 80 cc Isovue 370 contrast. Two-dimensional sagittal and coronal reformatted images obtained. Additional 3-dimensional reformatted images obtained using separate workstation. Comparison: February 23, 2021. Distal internal carotid arteries again demonstrates mild scattered calcifications bilaterally without critical stenosis or obstruction. Normal carotid terminus with normal branching A1 and M1 segments bilaterally. More distal anterior cerebral and middle cerebral arteries are normal in CTA appearance bilaterally. Basilar artery remains normal in course and caliber with normal branching posterior cerebral, superior cerebellar, and anterior inferior cerebral arteries bilaterally. Venous system/sinuses remain unremarkable. Remaining whole brain negative for abnormal enhancing intra or extra-axial mass/lesion. Impression: No change compared to CTA head February 23, 2021 again demonstrating mild scattered distal internal carotid arteriosclerotic calcifications without critical stenosis/obstruction. Remaining CTA head is again negative.
[2021-04-05] MEDS ORDERED: BENADRYL 50 MG/ML ONE (08:53)
[2021-04-05] MEDS ORDERED: MORPHINE SULFATE 4 MG INJ ONE (08:53)
[2021-04-05] MEDS ORDERED: Reglan 10 MG/2 ML ONE (08:53)
[2021-04-05] MEDS ORDERED: BENADRYL 50 MG/ML IV ONE (09:00)
[2021-04-05] MEDS ORDERED: MORPHINE SULFATE 4 MG INJ IV ONE (09:00)
[2021-04-05] MEDS ORDERED: Reglan 10 MG/2 ML IV ONE (09:00)
[2021-04-05] MEDS ORDERED: Sodium Chloride 0.9% 500 ML 500 ML IV ONE ×2 (10:38→10:45)
--- NOTE | 2021-04-05 10:57 | XRAY ---
Indication: Stroke symptoms. Comparison: March 13, 2021. Portable chest now demonstrates subtle left base infiltrate versus atelectasis. Remaining heart, right lung, and bony thorax normal.
[2021-04-05 11:19] LABS: CSF GLUCOSE 109 mg/dL (40-70); CSF PROTEIN 63 mg/dL (12-60)
[2021-04-05 11:38] LABS: CSF CLARITY CLEAR; CSF COLOR COLORLESS; CSF RBCS 5 CU. MM (0-2); CSF WBCS 8 CU. MM (0-6)
[2021-04-05] MEDS ORDERED: HUMALOG SQ PRN (13:05)
[2021-04-05] MEDS ORDERED: MORPHINE SULFATE 2 MG INJ IV PRN (13:05)
[2021-04-05] MEDS ORDERED: Zofran 4 MG/2 ML VIAL IV PRN (13:05)
[2021-04-05] MEDS ORDERED: TYLENOL 325 MG PO PRN (13:05)
[2021-04-05] MEDS ORDERED: PROTONIX 40 MG IV IV SCH (14:00)
[2021-04-05] MEDS ORDERED: DULCOLAX 5 MG PO PRN (14:34)
[2021-04-05] MEDS ORDERED: xanAX 0.25 MG PO PRN (14:34)
--- NOTE | 2021-04-05 16:13 | XRAY ---
Indication: Increasing confusion. Multiple contiguous axial images obtained through the head without contrast. Comparison: Taken earlier in the day. Stable global atrophy, minimal periventricular degenerative micro-ischemia bilaterally, and metallic foreign body deep left manager skilled space. No acute intracranial hemorrhage, abnormal extra-axial fluid collection, or mass effect. Fourth ventricle is midline without hydrocephalus. Bony calvarium intact. Visualized paranasal sinuses and mastoid air cells clear. Impression: Continued nonacute senile brain.
[2021-04-05] MEDS: Cymbalta 30 MG Capsule PO SCH (16:40)
[2021-04-05] MEDS: ZOCOR 20MG PO SCH (16:40)
[2021-04-05] MEDS: Cozaar 50 MG PO SCH (16:40)
[2021-04-05] MEDS: Protonix 40MG Tablet PO SCH (16:41)
[2021-04-05] MEDS: Proscar 5 MG PO SCH (16:41)
[2021-04-05] MEDS: Lopressor 50 MG PO SCH ×2 (16:41→22:19)
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
[2021-04-05 20:44] LABS: Folate (Folic Acid) 8.24 ng/mL (2.76 - >20)
[2021-04-05] MEDS ORDERED: NON-FORMULARY ITEM (Metoprolol Tartrate [Metoprolol Tartrate] 100 MG) PO SCH (22:00)
[2021-04-06 05:54] LABS: Absolute Neutrophil Ct (ANC) 2.69 (1.4-6.9); BASOPHIL % 0.2 % (0.0-0.4); Basophil (Absolute #) 0.01 (0-0.4); Eosinophil % 4.5 % (0.00-5.0); Eosinophil (Absolute #) 0.26 (0-0.5); Hematocrit 38.6 % (42-50); Hemoglobin 12.5 gm/dl (12.5-18.0); Lymphocyte (Absolute #) 2.19 (1.0-4.6); Lymphocytes % 37.9 % (24.0-44.0); Mean Cell Volume 87.5 fl (78-100); Mean Corpuscular Hemoglobin 28.3 pg (26-32); Mean Corpuscular Hgb Concent. 32.4 g/dl (32-36); Mean Platelet Volume 10.4 fl (7.5-11.0); Monocyte (Absolute #) 0.63 (0.0-1.3); Monocytes % 10.9 % (0.0-12.0); Neutrophil % 46.5 % (36.0-66.0); Platelet Count 188 K/mm3 (150-450); Red Blood Count 4.41 M/mm3 (4.1-5.6); Red Cell Distribution Width 13.2 % (11.5-14.0); White Blood Count 5.8 K/mm3 (4.0-10.5)
[2021-04-06 06:22] LABS: ALBUMIN 3.5 g/dL (3.5-5.0); ALKALINE PHOSPHATASE 74 U/L (38-126); ANION GAP 12.1 MEQ/L (5-15); BLOOD UREA NITROGEN 29 mg/dL (9-20); CHLORIDE 100 mmol/L (98-107); Calcium 9.5 mg/dL (8.4-10.2); Carbon Dioxide 27 mmol/L (22-30); Creatinine 1 1.16 mg/dL (0.66-1.25); EST GLOMERULAR FILTRATION RATE > 60.0 ML/MIN; Glucose 166 mg/dL (74-106); Potassium 3.9 mmol/L (3.5-5.1); SGOT/AST 30 U/L (17-59); SGPT/ALT 17 U/L (0-50); SODIUM 136 mmol/L (137-145); Total Protein 6.2 g/dL (6.3-8.2)
[2021-04-06] MEDS ORDERED: NON-FORMULARY ITEM (Omeprazole [Omeprazole] 40 MG) PO SCH (10:00)
[2021-04-06] MEDS ORDERED: LIPITOR 40MG PO SCH (10:00)
[2021-04-06] MEDS ORDERED: ECOTRIN 81 MG PO SCH (10:00)
[2021-04-06] MEDS: Lopressor 50 MG PO SCH (10:11)
[2021-04-06] MEDS: ZOCOR 20MG PO SCH (10:12)
[2021-04-06] MEDS: Cymbalta 30 MG Capsule PO SCH (10:12)
[2021-04-06] MEDS: Cozaar 50 MG PO SCH (10:12)
[2021-04-06] MEDS: Proscar 5 MG PO SCH (10:13)
[2021-04-06] MEDS: Protonix 40MG Tablet PO SCH (10:13)
[2021-04-06 13:38] VITALS: BP 135/66; PULSE 58; O2SAT 95
--- NOTE | 2021-04-06 13:56 | PCM.DS ---
Discharge Summary Date of Admission: 04/05/21 12:58 Date of Discharge: 04/06/21 Admitting Physician: RIDGE ANDERSON Consults: Tele-Neuro Primary Care Provider: [facility] Allergies Allergies No Known Drug Allergies Allergy (Verified 04/05/21 05:42) Hospital Summary - Vitals & Intake/Output Vital Signs: Vital Signs Temperature 98.4 F 04/06/21 12:00 Pulse Rate 58 L 04/06/21 12:00 Respiratory Rate 18 04/06/21 12:00 Blood Pressure 135/66 04/06/21 12:00 O2 Sat by Pulse Oximetry 95 04/06/21 12:00 Intake & Output: Intake & Output 04/04/21 04/05/21 04/06/21 04/07/21 11:59 11:59 11:59 11:59 Intake Total 360 240 Output Total 200 500 Balance 160 -260 Weight 102.1 kg 110.5 kg - Lab Result Diagrams: 04/06/21 05:30 04/06/21 05:30 Lab Results-Last 24 Hrs: Lab Results-Last 24 Hours 04/05/21 04/05/21 04/05/21 Range/Units 13:35 14:22 14:55 WBC (4.0-10.5) K/mm3 RBC (4.1-5.6) M/mm3 Hgb (12.5-18.0) gm/dl Hct (42-50) % MCV (78-100) fl MCH (26-32) pg MCHC (32-36) g/dl RDW (11.5-14.0) % Plt Count (150-450) K/mm3 MPV (7.5-11.0) fl Gran % (36.0-66.0) % Eos # (Auto) (0-0.5) Absolute Lymphs (auto) (1.0-4.6) Absolute Monos (auto) (0.0-1.3) Lymphocytes % (24.0-44.0) % Monocytes % (0.0-12.0) % Eosinophils % (0.00-5.0) % Basophils % (0.0-0.4) % Absolute Granulocytes (1.4-6.9) Basophils # (0-0.4) ESR (0-15) mm/hr Sodium (137-145) mmol/L Potassium (3.5-5.1) mmol/L Chloride (98-107) mmol/L Carbon Dioxide (22-30) mmol/L Anion Gap (5-15) MEQ/L BUN (9-20) mg/dL Creatinine (0.66-1.25) mg/dL Estimated GFR ML/MIN Glucose (74-106) mg/dL POC Glucometer 147 H (74 to 106) mg/dL Hemoglobin A1c 7.20 H (4.5-6.0) % Calcium (8.4-10.2) mg/dL Total Bilirubin (0.2-1.3) mg/dL AST (17-59) U/L ALT (0-50) U/L Alkaline Phosphatase (38-126) U/L Troponin I < 0.012 (0.000-0.034) ng/mL Serum Total Protein (6.3-8.2) g/dL Albumin (3.5-5.0) g/dL Vitamin B12 (239-931) pg/mL Folic Acid (2.76 - >20) ng/mL 04/05/21 04/05/21 04/05/21 Range/Units 17:03 17:55 17:55 WBC (4.0-10.5) K/mm3 RBC (4.1-5.6) M/mm3 Hgb (12.5-18.0) gm/dl Hct (42-50) % MCV (78-100) fl MCH (26-32) pg MCHC (32-36) g/dl RDW (11.5-14.0) % Plt Count (150-450) K/mm3 MPV (7.5-11.0) fl Gran % (36.0-66.0) % Eos # (Auto) (0-0.5) Absolute Lymphs (auto) (1.0-4.6) Absolute Monos (auto) (0.0-1.3) Lymphocytes % (24.0-44.0) % Monocytes % (0.0-12.0) % Eosinophils % (0.00-5.0) % Basophils % (0.0-0.4) % Absolute Granulocytes (1.4-6.9) Basophils # (0-0.4) ESR 18 H (0-15) mm/hr Sodium (137-145) mmol/L Potassium (3.5-5.1) mmol/L Chloride (98-107) mmol/L Carbon Dioxide (22-30) mmol/L Anion Gap (5-15) MEQ/L BUN (9-20) mg/dL Creatinine (0.66-1.25) mg/dL Estimated GFR ML/MIN Glucose (74-106) mg/dL POC Glucometer (74 to 106) mg/dL Hemoglobin A1c (4.5-6.0) % Calcium (8.4-10.2) mg/dL Total Bilirubin (0.2-1.3) mg/dL AST (17-59) U/L ALT (0-50) U/L Alkaline Phosphatase (38-126) U/L Troponin I < 0.012 (0.000-0.034) ng/mL Serum Total Protein (6.3-8.2) g/dL Albumin (3.5-5.0) g/dL Vitamin B12 262 (239-931) pg/mL Folic Acid 8.24 (2.76 - >20) ng/mL 04/05/21 04/06/21 04/06/21 Range/Units 20:48 05:30 05:30 WBC 5.8 (4.0-10.5) K/mm3 RBC 4.41 (4.1-5.6) M/mm3 Hgb 12.5 (12.5-18.0) gm/dl Hct 38.6 L (42-50) % MCV 87.5 (78-100) fl MCH 28.3 (26-32) pg MCHC 32.4 (32-36) g/dl RDW 13.2 (11.5-14.0) % Plt Count 188 (150-450) K/mm3 MPV 10.4 (7.5-11.0) fl Gran % 46.5 (36.0-66.0) % Eos # (Auto) 0.26 (0-0.5) Absolute Lymphs (auto) 2.19 (1.0-4.6) Absolute Monos (auto) 0.63 (0.0-1.3) Lymphocytes % 37.9 (24.0-44.0) % Monocytes % 10.9 (0.0-12.0) % Eosinophils % 4.5 (0.00-5.0) % Basophils % 0.2 (0.0-0.4) % Absolute Granulocytes 2.69 (1.4-6.9) Basophils # 0.01 (0-0.4) ESR (0-15) mm/hr Sodium 136 L (137-145) mmol/L Potassium 3.9 (3.5-5.1) mmol/L Chloride 100 (98-107) mmol/L Carbon Dioxide 27 (22-30) mmol/L Anion Gap 12.1 (5-15) MEQ/L BUN 29 H (9-20) mg/dL Creatinine 1.16 (0.66-1.25) mg/dL Estimated GFR > 60.0 ML/MIN Glucose 166 H (74-106) mg/dL POC Glucometer 190 H (74 to 106) mg/dL Hemoglobin A1c (4.5-6.0) % Calcium 9.5 (8.4-10.2) mg/dL Total Bilirubin 0.50 (0.2-1.3) mg/dL AST 30 (17-59) U/L ALT 17 (0-50) U/L Alkaline Phosphatase 74 (38-126) U/L Troponin I (0.000-0.034) ng/mL Serum Total Protein 6.2 L (6.3-8.2) g/dL Albumin 3.5 (3.5-5.0) g/dL Vitamin B12 (239-931) pg/mL Folic Acid (2.76 - >20) ng/mL 04/06/21 Range/Units 10:56 WBC (4.0-10.5) K/mm3 RBC (4.1-5.6) M/mm3 Hgb (12.5-18.0) gm/dl Hct (42-50) % MCV (78-100) fl MCH (26-32) pg MCHC (32-36) g/dl RDW (11.5-14.0) % Plt Count (150-450) K/mm3 MPV (7.5-11.0) fl Gran % (36.0-66.0) % Eos # (Auto) (0-0.5) Absolute Lymphs (auto) (1.0-4.6) Absolute Monos (auto) (0.0-1.3) Lymphocytes % (24.0-44.0) % Monocytes % (0.0-12.0) % Eosinophils % (0.00-5.0) % Basophils % (0.0-0.4) % Absolute Granulocytes (1.4-6.9) Basophils # (0-0.4) ESR (0-15) mm/hr Sodium (137-145) mmol/L Potassium (3.5-5.1) mmol/L Chloride (98-107) mmol/L Carbon Dioxide (22-30) mmol/L Anion Gap (5-15) MEQ/L BUN (9-20) mg/dL Creatinine (0.66-1.25) mg/dL Estimated GFR ML/MIN Glucose (74-106) mg/dL POC Glucometer 247 H (74 to 106) mg/dL Hemoglobin A1c (4.5-6.0) % Calcium (8.4-10.2) mg/dL Total Bilirubin (0.2-1.3) mg/dL AST (17-59) U/L ALT (0-50) U/L Alkaline Phosphatase (38-126) U/L Troponin I (0.000-0.034) ng/mL Serum Total Protein (6.3-8.2) g/dL Albumin (3.5-5.0) g/dL Vitamin B12 (239-931) pg/mL Folic Acid (2.76 - >20) ng/mL Micro Results-Entire Visit: Microbiology 04/05/21 10:00 - Final Cerebral Spinal Fluid Not Reportable Organism ID (Sequencing) - Final Not Reportable - Final Not Reportable Organism Identification 1 - Final Not Reportable - Final Not Reportable - Final Not Reportable Organism Identification 2 - Final Not Reportable 04/05/21 11:16 Gram Stain - Final Cerebral Spinal Fluid CSF Culture - Preliminary NO GROWTH TO DATE Accuchecks Date 04/06/21 Date 04/05/21 Time 12:00 Time 22:00 - Radiology Exams Ordered Rad Exams-Entire Visit: Radiology Procedures Category Date Time Status CHEST 1 VIEW (PORTABLE) Stat Exams 04/05/21 10:[address] ANGIOGRAPHY NECK [CT] Stat Exams 04/05/21 06:38 Completed CTA HEAD W AND/OR WO CONTRAST [CT] Stat Exams 04/05/21 06:43 Completed HEAD WITHOUT CONTRAST [CT] Stat Exams 04/05/21 05:52 Completed HEAD WITHOUT CONTRAST [CT] Stat Exams 04/05/21 15:05 Completed - Discharge Disposition: Home, Self-Care Condition: Stable Prescriptions: Continue Ketoconazole [Nizoral A-D] 1 ml TP 3XW PRN PRN Reason: Itching Duloxetine HCl 30 mg [Cymbalta 30 MG Capsule] 90 mg PO DAILY Finasteride 5 mg [Proscar 5 MG] 5 mg PO DAILY Atorvastatin Calcium [Lipitor] 40 mg PO DAILY Bisacodyl 5 mg [Dulcolax 5 mg] 5 mg PO DAILY PRN PRN Reason: Constipation ALPRAZolam 0.25 MG [xanAX 0.25 MG] 0.25 mg PO BID PRN PRN Reason: Anxiety Metoprolol Tartrate 100 mg PO BID glipiZIDE [Glucotrol] 20 mg PO BID Metformin HCl 1,000 mg PO BID Ergocalciferol (Vitamin D2) [Vitamin D2] 50,000 unit PO WEEKLY Aspirin EC 81 mg [Ecotrin 81 mg] 81 mg PO DAILY Fish Oil/Dha/Epa [Fish Oil 1,200 mg Fish Oil] 2 each PO BID Omeprazole 40 mg PO DAILY Losartan Potassium 50 mg [Cozaar 50 MG] 50 mg PO DAILY Triamcinolone Acetonide [Triderm] 28.4 gm TP BID PRN PRN Reason: infection Instructions: Migraines (DC) Additional Instructions: Call Julieta KENDALL on Thursday04/08/21 for follow up appt Forms: Discharge Instructions
== END 2021-04-06 14:28 | disposition home or self-care (01) ==
LOC: ED 05:40 → MED SURG 12:58
PROVIDERS: ADMIT Family Medicine; ATTEND Family Medicine
DX: E11.65 Type 2 diabetes mellitus with hyperglycemia (principal); G43.909 Migraine, unspecified, not intractable, without status migrainosus; Z79.899 Other long term (current) drug therapy; I10 Essential (primary) hypertension; E78.00 Pure hypercholesterolemia, unspecified; R41.0 Disorientation, unspecified; Z20.828 Contact with and (suspected) exposure to other viral communicable diseases
CPT/HCPCS: 36000; 36415; 70450; 70496; 70498; 71045; 80053; 81001; 82607; 82746; 82945; 82947; 83036; 83921; 84157; 84484; 85025; 85652; 86592; 87070; 88112; 89050; 93005; 93041; 94760; 96374; 96375; 99285; U0003; 93268; 96360; J1200; J1817; J2270; J2405; A9270-GY; G0378

== ENCOUNTER 2024-09-02 17:06 | Emergency (ER) | payer OTHER ==
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
[2024-09-02 17:29] VITALS: TEMP 97.2
[2024-09-02] MEDS ORDERED: Zofran 4 MG/2 ML VIAL ONE (18:05)
[2024-09-02] MEDS ORDERED: Sodium Chloride 0.9% 1000 ML 1,000 ML ONE (18:05)
[2024-09-02] MEDS: Zofran 4 MG/2 ML VIAL IV ONE (18:07)
[2024-09-02] MEDS: Sodium Chloride 0.9% 1000 ML 1,000 ML IV STA (18:07)
[2024-09-02 18:22] LABS: Absolute Neutrophil Ct (ANC) 4.02 x10^3/uL (1.78-5.38); BASOPHIL % 0.3 % (0.2-1.2); Basophil (Absolute #) 0.02 x10^3/uL (0.01-0.08); Eosinophil % 1.9 % (0.8-7.0); Eosinophil (Absolute #) 0.11 x10^3/uL (0.04-0.54); Hematocrit 28.3 % (40.1-51.0); Hemoglobin 8.9 g/dL (13.7-17.5); IMMATURE GRAN # 0.03 x10^3u/L (0.001-0.031); IMMATURE GRAN % 0.5 % (0.001-0.429); Mean Cell Volume 82.7 fL (79.0-92.2); Mean Corpuscular Hgb Concent. 31.4 g/dL (32.3-36.5); Mean Platelet Volume 9.8 fL (9.4-12.4); Monocytes % 11.9 % (5.3-12.2); Neutrophil % 68.4 % (34.0-67.9); Platelet Count 218 x10^3/uL (163-337); Red Blood Count 3.42 x10^6/uL (4.63-6.08); Red Cell Distribution Width 12.9 % (11.6-14.4); White Blood Count 5.9 x10^3/uL (4.23-9.07)
[2024-09-02 18:42] LABS: ALBUMIN 3.7 g/dL (3.5-5.0); ALKALINE PHOSPHATASE 117 U/L (38-126); ANION GAP 13.8 MEQ/L (5-15); BLOOD UREA NITROGEN 34 mg/dL (9-20); CHLORIDE 104 mmol/L (98-107); Calcium 9.4 mg/dL (8.4-10.2); Carbon Dioxide 25 mmol/L (22-30); EST GLOMERULAR FILTRATION RATE 38.1 ML/MIN; ETHYL ALCOHOL < 10 mg/dL (0-10); Glucose 145 mg/dL (74-106); MAGNESIUM 1.9 mg/dL (1.6-2.3); Potassium 4.1 mmol/L (3.5-5.1); SGOT/AST 18 U/L (17-59); SGPT/ALT 16 U/L (0-50); SODIUM 139 mmol/L (135-145); Total Protein 6.7 g/dL (6.3-8.2)
[2024-09-02 18:57] LABS: Appearance Cloudy (Clear); Bacteria Moderate /HPF (None Seen); Bilirubin Negative (Negative); Blood Large (Negative); Epithelial Cells None Seen /HPF (None Seen); Glucose, Urine >=1000 mg/dL (Negative); Ketones Negative (Negative); Leukocyte Esterase Moderate (Negative); Nitrite Negative (Negative); Protein,Urine Dip 300 (Negative); RBC >100 /HPF (0-5); Specific Gravity 1.025 (1.005-1.030); Urobilinogen 0.2 mg/dL (0.2); WBC >100 /HPF (0-5)
[2024-09-02] MEDS ORDERED: ROCEPHIN 1 GM / 100 ML NaCl 1 GM/100 ML IVPB IV ONE (19:26)
[2024-09-02] MEDS ORDERED: Levofloxacin 500 MG Tablet ONE (19:26)
[2024-09-02] MEDS: ROCEPHIN 1 GM / 100 ML NaCl 1 GM/100 ML IVPB IV ONE (19:28)
[2024-09-02] MEDS: Levofloxacin 500 MG Tablet PO ONE (19:28)
[2024-09-02 20:09] VITALS: BP 167/70; PULSE 66; RESP 19; O2SAT 99
--- NOTE | 2024-09-03 08:10 | XRAY ---
Indication: Dizziness. Multiple contiguous axial images obtained through the head without contrast. Comparison: April 05, 2021. Again age-appropriate global atrophy, minimal periventricular degenerative micro-ischemia bilaterally, and metallic foreign body deep left campground attendant space. No acute intracranial hemorrhage, abnormal extra-axial fluid collection, or mass effect. Fourth ventricle is midline without hydrocephalus. Bony calvarium intact. Visualized paranasal sinuses and mastoid air cells are clear. Impression: Continued nonacute senile brain.
== END 2024-09-02 20:09 | disposition home or self-care (01) ==
LOC: ED 17:06
DX: N39.0 Urinary tract infection, site not specified (principal); R42 Dizziness and giddiness; R31.9 Hematuria, unspecified; R11.0 Nausea; I25.10 Atherosclerotic heart disease of native coronary artery without angina pectoris; E78.5 Hyperlipidemia, unspecified; I10 Essential (primary) hypertension; E11.9 Type 2 diabetes mellitus without complications; Z79.01 Long term (current) use of anticoagulants; Z79.899 Other long term (current) drug therapy
CPT/HCPCS: 36000; 36415; 70450; 80053; 81001; 82077; 83605; 83735; 84484; 85025; 87077; 87086; 87186; 93005; 93041; 96365; 96374; 99284; J0696; J2405; A9270-GY

== ENCOUNTER 2024-09-05 10:01 | Emergency (ER) | payer OTHER ==
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
[2024-09-05 10:26] VITALS: TEMP 97.4
[2024-09-05] MEDS ORDERED: Sodium Chloride 0.9% 500 ML 500 ML IV ONE (11:02)
[2024-09-05] MEDS: Sodium Chloride 0.9% 500 ML 500 ML IV ONE (11:04)
--- NOTE | 2024-09-05 12:04 | XRAY ---
Indication: Head injury following fall. Multiple contiguous axial images obtained through the head without contrast. Comparison: September 02, 2024. Again age-appropriate global atrophy, minimal periventricular degenerative micro-ischemia bilaterally, and metallic foreign body deep left central control room operator space. No acute intracranial hemorrhage, abnormal extra-axial fluid collection, or mass effect. Fourth ventricle is midline without hydrocephalus. Bony calvarium intact. Visualized paranasal sinuses and mastoid air cells are clear. Impression: Stable nonacute senile brain.
--- NOTE | 2024-09-05 12:08 | XRAY ---
Indication: Pain following fall. Multiple contiguous axial images obtained through the cervical spine. Sagittal and coronal reformatted images obtained. Comparison: August 27, 2020 Stable osteopenia. Axial images again negative for acute fracture, suspicious bony lesions, or spinal canal stenosis. Again minimal/mild C3-C4 and C5-C7 degenerative endplate spurring. Stable mild multilevel bilateral degenerative facet hypertrophy. Sagittal and coronal reformatted images again demonstrates cervical lordotic reversal, positional versus paraspinal spasm. Stable C3-C4 and C5-C6 degenerative disc space loss. No acute compression fracture, subluxation, or jumped facet. Normal appearing craniocervical junction. Visualized noncontrasted soft tissues again demonstrates mild carotid calcifications bilaterally. Lung apices are clear. Impression: 1. Again osteopenia, cervical lordotic reversal, multilevel degenerative spondylosis, and bilateral carotid calcifications. 2. No new/acute findings.
[2024-09-05 12:29] LABS: Absolute Neutrophil Ct (ANC) 4.76 x10^3/uL (1.78-5.38); BASOPHIL % 0.3 % (0.2-1.2); Basophil (Absolute #) 0.02 x10^3/uL (0.01-0.08); Eosinophil % 0.6 % (0.8-7.0); Eosinophil (Absolute #) 0.04 x10^3/uL (0.04-0.54); Hematocrit 27.1 % (40.1-51.0); Hemoglobin 8.4 g/dL (13.7-17.5); IMMATURE GRAN # 0.04 x10^3u/L (0.001-0.031); IMMATURE GRAN % 0.6 % (0.001-0.429); Lymphocyte (Absolute #) 0.94 x10^3/uL (1.32-3.57); Lymphocytes % 14.1 % (21.8-53.1); Mean Cell Volume 82.6 fL (79.0-92.2); Mean Corpuscular Hemoglobin 25.6 pg (25.7-32.2); Monocyte (Absolute #) 0.86 x10^3/uL (0.30-0.82); Monocytes % 12.9 % (5.3-12.2); Neutrophil % 71.5 % (34.0-67.9); Platelet Count 210 x10^3/uL (163-337); Red Blood Count 3.28 x10^6/uL (4.63-6.08); Red Cell Distribution Width 13.2 % (11.6-14.4); White Blood Count 6.7 x10^3/uL (4.23-9.07)
[2024-09-05] MEDS: TYLENOL 325 MG PO ONE (12:42)
[2024-09-05] MEDS ORDERED: TYLENOL 325 MG ONE (12:42)
[2024-09-05 12:46] LABS: PROTIME 10.9 SECONDS (9.4-12.5)
[2024-09-05 12:48] LABS: ALBUMIN 3.7 g/dL (3.5-5.0); ALKALINE PHOSPHATASE 124 U/L (38-126); ANION GAP 12.9 MEQ/L (5-15); BLOOD UREA NITROGEN 32 mg/dL (9-20); CHLORIDE 103 mmol/L (98-107); Calcium 9.2 mg/dL (8.4-10.2); Carbon Dioxide 26 mmol/L (22-30); Creatinine 1 1.95 mg/dL (0.66-1.25); EST GLOMERULAR FILTRATION RATE 34.6 ML/MIN; ETHYL ALCOHOL < 10 mg/dL (0-10); Glucose 196 mg/dL (74-106); Potassium 4.3 mmol/L (3.5-5.1); SGOT/AST 22 U/L (17-59); SGPT/ALT 17 U/L (0-50); SODIUM 137 mmol/L (135-145)
--- NOTE | 2024-09-05 14:49 | XRAY ---
Indication: Anemia. Hematuria. Multiple contiguous axial images obtained through the abdomen and pelvis without contrast. Comparison: None Lung bases hyperinflated and clear. Heart not enlarged. Noncontrasted stomach and bowel loops appear nonobstructed with normal appendix. Mild diffuse scattered colonic fecal debris throughout including rectum. Previous cholecystectomy. Spleen is enlarged measuring 15 cm. Mildly distended urinary bladder demonstrates mild circumferential wall thickening either incomplete distention versus cystitis. No free fluid/air. Remaining liver, pancreas, spleen, adrenal glands, kidneys, ureters, and bladder are unremarkable for noncontrast exam. Moderate scattered arteriosclerotic calcifications without AAA. Osseous structures intact with osteopenia, mild/moderate degenerative changes throughout the thoracolumbar spine, mild a scoliosis centered at L2, and mild degenerative changes both hips. Incidental small bilateral fatty inguinal hernias. Impression: 1. Mild fecal stasis with mild rectal impaction. 2. Mild distended urinary bladder with mild circumferential wall thickening either incomplete distention versus cystitis. 3. Incidental splenomegaly, arteriosclerotic disease, chronic bony findings, and bilateral fatty inguinal hernias. 4. Remaining CT abdomen/pelvis without contrast exam is negative.
[2024-09-05 17:04] VITALS: O2SAT 97
[2024-09-05 19:31] VITALS: BP 150/65; PULSE 68; RESP 19
== END 2024-09-05 19:46 | disposition short-term general hospital (02) ==
LOC: ED 10:01
DX: R55 Syncope and collapse (principal); S00.91XA Abrasion of unspecified part of head, initial encounter; S80.212A Abrasion, left knee, initial encounter; R42 Dizziness and giddiness; S80.211A Abrasion, right knee, initial encounter; W18.30XA Fall on same level, unspecified, initial encounter; N30.90 Cystitis, unspecified without hematuria; Z79.899 Other long term (current) drug therapy; Z79.01 Long term (current) use of anticoagulants; E11.9 Type 2 diabetes mellitus without complications; K56.41 Fecal impaction; R16.1 Splenomegaly, not elsewhere classified; K46.9 Unspecified abdominal hernia without obstruction or gangrene; D64.9 Anemia, unspecified; R31.9 Hematuria, unspecified
CPT/HCPCS: 36000; 36415; 70450; 72125; 74176; 80053; 80156; 82077; 82947; 85025; 85610; 87040; 87077; 87186; 93005; 93041; 94760; 99285; A9270-GY

== ENCOUNTER 2024-09-20 10:04 | Emergency (ER) | payer OTHER ==
[2024-09-20 10:21] VITALS: TEMP 96.2
[2024-09-20 10:58] LABS: Absolute Neutrophil Ct (ANC) 2.71 x10^3/uL (1.78-5.38); BASOPHIL % 0.2 % (0.2-1.2); Basophil (Absolute #) 0.01 x10^3/uL (0.01-0.08); Eosinophil % 6.2 % (0.8-7.0); Eosinophil (Absolute #) 0.26 x10^3/uL (0.04-0.54); Hematocrit 23.7 % (40.1-51.0); Hemoglobin 7.2 g/dL (13.7-17.5); IMMATURE GRAN # 0.03 x10^3u/L (0.001-0.031); IMMATURE GRAN % 0.7 % (0.001-0.429); Lymphocyte (Absolute #) 0.86 x10^3/uL (1.32-3.57); Lymphocytes % 20.4 % (21.8-53.1); Mean Cell Volume 84.3 fL (79.0-92.2); Mean Corpuscular Hemoglobin 25.6 pg (25.7-32.2); Mean Corpuscular Hgb Concent. 30.4 g/dL (32.3-36.5); Mean Platelet Volume 9.9 fL (9.4-12.4); Monocyte (Absolute #) 0.34 x10^3/uL (0.30-0.82); Monocytes % 8.1 % (5.3-12.2); Neutrophil % 64.4 % (34.0-67.9); Platelet Count 265 x10^3/uL (163-337); Red Blood Count 2.81 x10^6/uL (4.63-6.08); Red Cell Distribution Width 15.2 % (11.6-14.4); White Blood Count 4.2 x10^3/uL (4.23-9.07)
[2024-09-20 11:09] LABS: ALBUMIN 3.2 g/dL (3.5-5.0); ANION GAP 11.4 MEQ/L (5-15); BILIRUBIN,TOTAL 0.2 mg/dL (0.2-1.3); Calcium 9.2 mg/dL (8.4-10.2); Creatinine 1 1.12 mg/dL (0.66-1.25); EST GLOMERULAR FILTRATION RATE 67.2 ML/MIN; Potassium 3.4 mmol/L (3.5-5.1); Total Protein 6.2 g/dL (6.3-8.2)
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
[2024-09-20 12:18] LABS: ABO TYPING O
[2024-09-20 12:19] LABS: Antibody Screen NEGATIVE (NEGATIVE); RH TYPING NEGATIVE
[2024-09-20 13:56] LABS: Appearance Clear (Clear); Bilirubin Negative (Negative); Blood Large (Negative); Epithelial Cells None Seen /HPF (None Seen); Glucose, Urine Negative (Negative); Hyaline Casts NONE SEEN /LPF (0-2); Ketones Negative (Negative); Leukocyte Esterase Small (Negative); Nitrite Negative (Negative); Ph 6.5 (4.6-8.0); Protein,Urine Dip 300 (Negative); RBC >100 /HPF (0-5); Specific Gravity >=1.030 (1.005-1.030); Urobilinogen 0.2 mg/dL (0.2)
[2024-09-20 13:57] LABS: Bacteria Few /HPF (None Seen)
--- NOTE | 2024-09-20 14:04 | XRAY ---
Indication: Pulmonary embolus. Flank pain. Multiple contiguous axial images obtained through the chest using 80 cc Isovue 370 contrast and PE protocol. Comparison: None Good opacification pulmonary arteries including lobar and segmental branches. No pulmonary embolus. Heart is enlarged with scattered coronary calcifications. Aorta mildly arteriosclerotic without aneurysm/dissection. No pathologic mediastinal/hilar lymphadenopathy. Incidental left pacemaker and right arm PICC line. Lungs demonstrates mild bilateral dependent atelectasis and a few tiny calcified granulomas. No suspicious pulmonary mass/nodule, infiltrate, or effusion. Bony thorax intact with osteopenia, mild degenerative changes throughout spine, and sternotomy wires. CT abdomen/pelvis reported separately. Impression: 1. Negative pulmonary embolus. 2. Cardiomegaly without CHF. 3. Chronic findings including arteriosclerotic disease, chronic bony findings, and old granulomatous disease.
--- NOTE | 2024-09-20 14:10 | XRAY ---
Indication: Pulmonary embolus. Flank pain. Multiple contiguous axial images obtained through the abdomen and pelvis prior to and following 80 cc Isovue 370 contrast as ordered. Comparison: September 05, 2024 CT chest reported separately. Again no renal calculus or evidence for obstructive uropathy in either system. There remains a few tiny hepatic/splenic calcified granulomas. No new visceral calcification/calculi. Noncontrasted stomach and bowel loops nonobstructed again with normal appendix. There remains mild diffuse scattered colonic fecal debris throughout with mild rectal fecal impaction. No free fluid/air. Postcontrast images demonstrates normal visceral enhancement and renal excretion. Stable bilateral renal cysts, 14.5 cm splenomegaly, and cholecystectomy. Remaining liver, pancreas, spleen, adrenal glands, kidneys, ureters, and bladder are unremarkable. There remains moderate scattered aortoiliac calcifications. No AAA or pathologic retroperitoneal lymphadenopathy. Osseous structures intact again with osteopenia, degenerative changes, dextroscoliosis, and degenerative changes both hips. Again incidental small bilateral fatty inguinal hernias. Impression: No change compared to ER exam of 2 weeks ago. Continued negative for renal calculus or evidence for obstructive uropathy. Again mild diffuse fecal stasis with rectal fecal impaction, bilateral renal cysts, splenomegaly, arteriosclerotic disease, chronic bony findings, and bilateral fatty inguinal hernias. No new/acute findings.
[2024-09-20] MEDS ORDERED: NORVASC 5 MG ONE (16:20)
[2024-09-20] MEDS: NORVASC 5 MG PO ONE (16:20)
[2024-09-20] MEDS: COREG 12.5 MG PO ONE (16:27)
[2024-09-20 19:12] VITALS: O2SAT 95
[2024-09-20 19:15] VITALS: BP 140/59; PULSE 60; RESP 21
== END 2024-09-20 19:18 | disposition short-term general hospital (02) ==
LOC: ED 10:04
DX: D64.9 Anemia, unspecified (principal); R31.9 Hematuria, unspecified; R10.9 Unspecified abdominal pain; I11.9 Hypertensive heart disease without heart failure; R16.1 Splenomegaly, not elsewhere classified; I25.10 Atherosclerotic heart disease of native coronary artery without angina pectoris; K40.20 Bilateral inguinal hernia, without obstruction or gangrene, not specified as recurrent; R07.81 Pleurodynia; N39.0 Urinary tract infection, site not specified; E78.5 Hyperlipidemia, unspecified; E11.9 Type 2 diabetes mellitus without complications; Z79.02 Long term (current) use of antithrombotics/antiplatelets; Z79.84 Long term (current) use of oral hypoglycemic drugs; Z79.899 Other long term (current) drug therapy
CPT/HCPCS: 36415; 71260; 74178; 80053; 81001; 85025; 86850; 86900; 86901; 87086; 99285; A9270-GY

== ENCOUNTER 2024-10-07 22:58 | Emergency (ER) | payer OTHER ==
[2024-10-07 23:30] VITALS: TEMP 97.7
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
[2024-10-08 00:59] LABS: Absolute Neutrophil Ct (ANC) 1.57 x10^3/uL (1.78-5.38); BASOPHIL % 0.6 % (0.2-1.2); Basophil (Absolute #) 0.02 x10^3/uL (0.01-0.08); Eosinophil % 15.2 % (0.8-7.0); Eosinophil (Absolute #) 0.52 x10^3/uL (0.04-0.54); Hematocrit 25.4 % (40.1-51.0); Hemoglobin 7.5 g/dL (13.7-17.5); IMMATURE GRAN # 0.01 x10^3u/L (0.001-0.031); IMMATURE GRAN % 0.3 % (0.001-0.429); Lymphocyte (Absolute #) 0.86 x10^3/uL (1.32-3.57); Lymphocytes % 25.2 % (21.8-53.1); Mean Cell Volume 83.6 fL (79.0-92.2); Mean Corpuscular Hemoglobin 24.7 pg (25.7-32.2); Mean Corpuscular Hgb Concent. 29.5 g/dL (32.3-36.5); Mean Platelet Volume 10.6 fL (9.4-12.4); Monocyte (Absolute #) 0.43 x10^3/uL (0.30-0.82); Monocytes % 12.6 % (5.3-12.2); Neutrophil % 46.1 % (34.0-67.9); Platelet Count 173 x10^3/uL (163-337); Red Blood Count 3.04 x10^6/uL (4.63-6.08); Red Cell Distribution Width 15.5 % (11.6-14.4); White Blood Count 3.4 x10^3/uL (4.23-9.07)
[2024-10-08 01:18] LABS: INR 0.97 (0.8-3.0); PROTIME 10.6 SECONDS (9.4-12.5)
[2024-10-08 01:20] LABS: D-DIMER QUANTITATIVE 1.25 mg/L (0.0-0.50)
[2024-10-08 01:22] LABS: ALBUMIN 3.7 g/dL (3.5-5.0); BILIRUBIN,TOTAL 0.2 mg/dL (0.2-1.3); Calcium 9.1 mg/dL (8.4-10.2); Creatinine 1 1.43 mg/dL (0.66-1.25); EST GLOMERULAR FILTRATION RATE 50.2 ML/MIN; MAGNESIUM 1.8 mg/dL (1.6-2.3); TROPONIN 0.031 ng/mL (0.000-0.033); Total Protein 6.7 g/dL (6.3-8.2)
[2024-10-08] MEDS ORDERED: Lasix 40 MG/4 ML ONE (01:30)
[2024-10-08] MEDS: Lasix 40 MG/4 ML IV ONE (01:31)
[2024-10-08 01:41] LABS: INFLUENZA A NEGATIVE (NEGATIVE); INFLUENZA B NEGATIVE (NEGATIVE); RESPIRATORY SYNCTIAL VIRUS NEGATIVE (NEGATIVE); SARS-CoV-2 Xpert Express NEGATIVE (NEGATIVE)
[2024-10-08] MEDS ORDERED: XYLOCAINE 2% Uro-Jet ONE (01:42)
[2024-10-08 02:42] LABS: Appearance Clear (Clear); Bacteria None Seen /HPF (None Seen); Bilirubin Negative (Negative); Blood NHT (Negative); Epithelial Cells None Seen /HPF (None Seen); Glucose, Urine Negative (Negative); Hyaline Casts NONE SEEN /LPF (0-2); Ketones Negative (Negative); Leukocyte Esterase Small (Negative); Nitrite Negative (Negative); Protein,Urine Dip 300 (Negative); Urobilinogen 0.2 mg/dL (0.2); WBC >100 /HPF (0-5)
[2024-10-08] MEDS ORDERED: LOPRESSOR INJECTION IV ONE ×2 (03:42→04:55)
[2024-10-08] MEDS: LOPRESSOR INJECTION IV ONE ×2 (03:47→04:57)
[2024-10-08] MEDS ORDERED: ROCEPHIN 1 GM / 100 ML NaCl 1 GM/100 ML IVPB IV ONE (06:55)
[2024-10-08] MEDS: ROCEPHIN 1 GM / 100 ML NaCl 1 GM/100 ML IVPB IV ONE (06:56)
[2024-10-08 08:10] VITALS: RESP 18
[2024-10-08] MEDS ORDERED: TRANDATE 20 MG/4 ML SYRINGE IV ONE (08:32)
[2024-10-08] MEDS: TRANDATE 20 MG/4 ML SYRINGE IV ONE (08:37)
[2024-10-08 09:11] VITALS: BP 171/90; PULSE 60; O2SAT 99
--- NOTE | 2024-10-10 07:29 | XRAY ---
CLINICAL HISTORY: SOB; elevated D-dimer COMPARISON: None TECHNIQUE: Contiguous axial images were obtained from the neck base through the upper abdomen without and following intravenous administration of contrast material. If IV contrast material had not been administered, the likelihood of detecting abnormalities relevant to the patient's condition would have been substantially decreased. In addition, sagittal and coronal reconstructions were performed. CT scan was performed according to ALARA (as low as reasonably achievable). FINDINGS: Mild bilateral pleural effusion. The lungs are clear, with no focal areas of consolidation. No pulmonary nodules are seen. The central airways are patent. No pneumothorax is seen. No axillary, hilar, or mediastinal adenopathy is identified. The visualized thyroid is unremarkable. The heart, aorta, and pulmonary arteries are of normal size and configuration. There are multifocal coronary artery and aortic atherosclerotic calcifications. No pericardial effusion is identified. Imaged portions of the upper abdomen are unremarkable. No aggressive appearing osseous lesions are identified. IMPRESSION: 1. No evidence of pulmonary embolism. 2. Mild bilateral pleural effusion. Electronically Signed by: Ronn Cronin MD. (10/08/2024 05:21:23 EST)
== END 2024-10-08 09:20 | disposition short-term general hospital (02) ==
LOC: ED 22:58
DX: J90 Pleural effusion, not elsewhere classified (principal); R06.02 Shortness of breath; R60.0 Localized edema; R06.01 Orthopnea; R07.9 Chest pain, unspecified; D72.829 Elevated white blood cell count, unspecified; D63.8 Anemia in other chronic diseases classified elsewhere; I11.0 Hypertensive heart disease with heart failure; I50.9 Heart failure, unspecified; N10 Acute pyelonephritis; Z79.899 Other long term (current) drug therapy; Z79.01 Long term (current) use of anticoagulants
CPT/HCPCS: 0241U; 36415; 51702; 71270; 80053; 81001; 83605; 83735; 83880; 84484; 85025; 85379; 85610; 87040; 87086; 93005; 93041; 94760; 96365; 96374; 96375; 96376; 99291; 99285; J0696; J1940

== ENCOUNTER 2024-12-12 12:48 | Emergency (ER) | payer OTHER ==
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
[2024-12-12 13:07] VITALS: TEMP 97
[2024-12-12 14:04] LABS: Absolute Neutrophil Ct (ANC) 4.25 x10^3/uL (1.78-5.38); BASOPHIL % 0.3 % (0.2-1.2); Basophil (Absolute #) 0.02 x10^3/uL (0.01-0.08); Eosinophil % 2.3 % (0.8-7.0); Eosinophil (Absolute #) 0.14 x10^3/uL (0.04-0.54); Hematocrit 30.1 % (40.1-51.0); Hemoglobin 9.1 g/dL (13.7-17.5); IMMATURE GRAN # 0.03 x10^3u/L (0.001-0.031); IMMATURE GRAN % 0.5 % (0.001-0.429); Lymphocyte (Absolute #) 1.09 x10^3/uL (1.32-3.57); Lymphocytes % 17.7 % (21.8-53.1); Mean Cell Volume 73.6 fL (79.0-92.2); Mean Corpuscular Hemoglobin 22.2 pg (25.7-32.2); Mean Corpuscular Hgb Concent. 30.2 g/dL (32.3-36.5); Mean Platelet Volume 9.9 fL (9.4-12.4); Monocyte (Absolute #) 0.63 x10^3/uL (0.30-0.82); Monocytes % 10.2 % (5.3-12.2); Platelet Count 198 x10^3/uL (163-337); Red Blood Count 4.09 x10^6/uL (4.63-6.08); Red Cell Distribution Width 16.7 % (11.6-14.4); White Blood Count 6.2 x10^3/uL (4.23-9.07)
[2024-12-12 14:24] LABS: ALBUMIN 4.2 g/dL (3.5-5.0); ANION GAP 15.1 MEQ/L (5-15); BILIRUBIN,TOTAL 0.3 mg/dL (0.2-1.3); Calcium 9.5 mg/dL (8.4-10.2); Creatinine 1 2.46 mg/dL (0.66-1.25); EST GLOMERULAR FILTRATION RATE 26.2 ML/MIN; MAGNESIUM 2.2 mg/dL (1.6-2.3); Potassium 3.8 mmol/L (3.5-5.1); Total Protein 7.1 g/dL (6.3-8.2)
--- NOTE | 2024-12-12 14:52 | XRAY ---
Indication: Dizziness. Fall. Multiple contiguous axial images obtained through the head without contrast. Comparison: September 05, 2024 Again age-appropriate global atrophy and minimal periventricular degenerative micro-ischemia. No acute intracranial hemorrhage, abnormal extra-axial fluid collection, or mass effect. Fourth ventricle is midline. Bony calvarium intact. Visualized paranasal sinuses and mastoid air cells are clear. Impression: Stable nonacute senile brain.
[2024-12-12 15:15] VITALS: PULSE 62; RESP 22
[2024-12-12 16:10] VITALS: O2SAT 99
[2024-12-12 16:46] LABS: Appearance Clear (Clear); Bacteria None Seen /HPF (None Seen); Bilirubin Negative (Negative); Blood Negative (Negative); Epithelial Cells None Seen /HPF (None Seen); Glucose, Urine >=1000 mg/dL (Negative); Hyaline Casts NONE SEEN /LPF (0-2); Ketones Negative (Negative); Leukocyte Esterase Negative (Negative); Nitrite Negative (Negative); Protein,Urine Dip Negative (Negative); RBC 0-2 /HPF (0-5); Urobilinogen 0.2 mg/dL (0.2); WBC 0-2 /HPF (0-5)
[2024-12-12 18:16] VITALS: BP 171/86
== END 2024-12-12 18:27 | disposition home or self-care (01) ==
LOC: ED 12:48
DX: R42 Dizziness and giddiness (principal); S51.811A Laceration without foreign body of right forearm, initial encounter; W19.XXXA Unspecified fall, initial encounter; E78.5 Hyperlipidemia, unspecified; I10 Essential (primary) hypertension; E11.9 Type 2 diabetes mellitus without complications; Z79.02 Long term (current) use of antithrombotics/antiplatelets; Z79.84 Long term (current) use of oral hypoglycemic drugs; Z79.899 Other long term (current) drug therapy
CPT/HCPCS: 36415; 70450; 80053; 81001; 82947; 83735; 84484; 85025; 93005; 99284; 99285

== ENCOUNTER 2024-12-18 10:21 | Emergency (ER) | payer OTHER ==
[2024-12-18 10:40] VITALS: TEMP 97.6
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
[2024-12-18 12:11] LABS: Absolute Neutrophil Ct (ANC) 4.74 x10^3/uL (1.78-5.38); BASOPHIL % 0.3 % (0.2-1.2); Basophil (Absolute #) 0.02 x10^3/uL (0.01-0.08); Eosinophil % 2.4 % (0.8-7.0); Eosinophil (Absolute #) 0.16 x10^3/uL (0.04-0.54); Hematocrit 32.4 % (40.1-51.0); Hemoglobin 9.1 g/dL (13.7-17.5); IMMATURE GRAN # 0.05 x10^3u/L (0.001-0.031); IMMATURE GRAN % 0.7 % (0.001-0.429); Lymphocyte (Absolute #) 1.17 x10^3/uL (1.32-3.57); Lymphocytes % 17.3 % (21.8-53.1); Mean Cell Volume 80.8 fL (79.0-92.2); Mean Corpuscular Hemoglobin 22.7 pg (25.7-32.2); Mean Corpuscular Hgb Concent. 28.1 g/dL (32.3-36.5); Mean Platelet Volume 10.1 fL (9.4-12.4); Monocyte (Absolute #) 0.62 x10^3/uL (0.30-0.82); Monocytes % 9.2 % (5.3-12.2); Neutrophil % 70.1 % (34.0-67.9); Platelet Count 253 x10^3/uL (163-337); Red Blood Count 4.01 x10^6/uL (4.63-6.08); Red Cell Distribution Width 17.2 % (11.6-14.4); White Blood Count 6.8 x10^3/uL (4.23-9.07)
[2024-12-18 12:25] VITALS: RESP 18
[2024-12-18 12:30] LABS: ANION GAP 17.8 MEQ/L (5-15); Calcium 9.8 mg/dL (8.4-10.2); Creatinine 1 1.74 mg/dL (0.66-1.25); EST GLOMERULAR FILTRATION RATE 39.6 ML/MIN; Potassium 3.8 mmol/L (3.5-5.1)
[2024-12-18 13:14] VITALS: O2SAT 99
[2024-12-18 13:23] VITALS: BP 171/88; PULSE 69
[2024-12-18 14:15] LABS: Slide Review 1 YES
== END 2024-12-18 13:31 | disposition home or self-care (01) ==
LOC: ED 10:21
DX: S00.81XA Abrasion of other part of head, initial encounter (principal); W22.01XA Walked into wall, initial encounter; Y92.002 Bathroom of unspecified non-institutional (private) residence as the place of occurrence of the external cause; E78.5 Hyperlipidemia, unspecified; I10 Essential (primary) hypertension; E11.9 Type 2 diabetes mellitus without complications; Z79.02 Long term (current) use of antithrombotics/antiplatelets; Z79.84 Long term (current) use of oral hypoglycemic drugs; Z79.899 Other long term (current) drug therapy
CPT/HCPCS: 36415; 70450; 80048; 84484; 85025; 85730; 93005; 99284; 99285

== ENCOUNTER 2025-02-07 15:11 | Observation (INO) | payer OTHER ==
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
[2025-02-07 15:35] LABS: Absolute Neutrophil Ct (ANC) 3.23 x10^3/uL (1.78-5.38); BASOPHIL % 0.6 % (0.2-1.2); Basophil (Absolute #) 0.03 x10^3/uL (0.01-0.08); Eosinophil % 7.2 % (0.8-7.0); Eosinophil (Absolute #) 0.39 x10^3/uL (0.04-0.54); Hematocrit 32.6 % (40.1-51.0); Hemoglobin 9.5 g/dL (13.7-17.5); IMMATURE GRAN # 0.05 x10^3u/L (0.001-0.031); IMMATURE GRAN % 0.9 % (0.001-0.429); Lymphocytes % 20.2 % (21.8-53.1); Mean Cell Volume 72.3 fL (79.0-92.2); Mean Corpuscular Hemoglobin 21.1 pg (25.7-32.2); Mean Corpuscular Hgb Concent. 29.1 g/dL (32.3-36.5); Mean Platelet Volume 10.6 fL (9.4-12.4); Monocyte (Absolute #) 0.64 x10^3/uL (0.30-0.82); Monocytes % 11.8 % (5.3-12.2); Neutrophil % 59.3 % (34.0-67.9); Platelet Count 273 x10^3/uL (163-337); Red Blood Count 4.51 x10^6/uL (4.63-6.08); Red Cell Distribution Width 16.6 % (11.6-14.4); White Blood Count 5.4 x10^3/uL (4.23-9.07)
[2025-02-07] MEDS: Sodium Chloride 0.9% 1000 ML 1,000 ML IV SCH (15:39)
[2025-02-07 15:49] LABS: ALBUMIN 4.2 g/dL (3.5-5.0); ANION GAP 18.3 MEQ/L (5-15); BILIRUBIN,TOTAL 0.3 mg/dL (0.2-1.3); Calcium 9.4 mg/dL (8.4-10.2); Creatinine 1 1.99 mg/dL (0.66-1.25); EST GLOMERULAR FILTRATION RATE 33.7 ML/MIN; Potassium 4.6 mmol/L (3.5-5.1); Total Protein 6.9 g/dL (6.3-8.2)
[2025-02-07 16:32] LABS: Appearance Clear (Clear); Bacteria None Seen /HPF (None Seen); Bilirubin Negative (Negative); Blood Negative (Negative); Epithelial Cells None Seen /HPF (None Seen); Glucose, Urine >=1000 mg/dL (Negative); Hyaline Casts NONE SEEN /LPF (0-2); Ketones Negative (Negative); Leukocyte Esterase Negative (Negative); Nitrite Negative (Negative); Ph 5.5 (4.6-8.0); Protein,Urine Dip 100 (Negative); RBC 0-2 /HPF (0-5); Urobilinogen 0.2 mg/dL (0.2); WBC 0-2 /HPF (0-5)
--- NOTE | 2025-02-07 17:13 | XRAY ---
Indication: Acute dizziness. Multiple contiguous axial images obtained through the head without contrast. Comparison: December 12 and December 18, 2024. Again age-appropriate global atrophy and minimal periventricular degenerative micro-ischemia. No acute intracranial hemorrhage, abnormal extra-axial fluid collection, or mass effect. Fourth ventricle is midline without hydrocephalus. Superior sagittal sinus near vertex demonstrates 2 new tiny air bubbles. Bony calvarium intact. Visualized paranasal sinuses are clear. Again partial opacification both mastoid air cells presumed inflammatory. Impression: 1. New tiny air bubbles cavernous sinus. Finding can be iatrogenic from IV access. Traumatic pneumocephalus or barotrauma not completely excluded in right clinical setting. 2. Again partial opacification both mastoid air cells presumed inflammatory. 3. No acute intracranial hemorrhage. 4. Again atrophy and degenerative micro-ischemia within normal limits.
[2025-02-07] MEDS: BABY ASPIRIN 81 MG CHEW PO ONE (17:37)
[2025-02-07] MEDS ORDERED: Docusate Sodium 100 MG PO PRN (22:02)
[2025-02-07] MEDS ORDERED: TYLENOL 325 MG PO PRN (22:04)
[2025-02-07] MEDS: COREG 12.5 MG PO SCH (22:41)
[2025-02-07] MEDS: Cozaar 50 MG PO SCH (22:41)
[2025-02-07] MEDS ORDERED: VENTOLIN COMMON CANISTER IH PRN (22:53)
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
[2025-02-08 04:48] LABS: Hematocrit 28.7 % (40.1-51.0); Hemoglobin 8.2 g/dL (13.7-17.5); Mean Cell Volume 71.8 fL (79.0-92.2); Mean Corpuscular Hemoglobin 20.5 pg (25.7-32.2); Mean Corpuscular Hgb Concent. 28.6 g/dL (32.3-36.5); Mean Platelet Volume 10.3 fL (9.4-12.4); Platelet Count 227 x10^3/uL (163-337); Red Cell Distribution Width 16.8 % (11.6-14.4); White Blood Count 4.3 x10^3/uL (4.23-9.07)
[2025-02-08] MEDS: HEPARIN 5000 UNITS/0.5 ML (HIGH RISK MED) SQ SCH (05:20)
--- NOTE | 2025-02-08 05:26 | PCM.NOTE ---
Date and Time: 02/08/25 0517 Subjective Assessment: MR. Shaikh is a 79-year-old man with a complex history including CAD (post- CABG), HTN, DM2, BPH, CVA, and depression who presented 02/07/25 with recurrent presyncopal episodes and a fall while attending cardiac rehab. He reports frequent lightheadedness upon standing without associated syncope, seizure act ivity, or prodromal symptoms. He has had multiple recent medication changes and reports taking both furosemide and HCTZ at home, despite furosemide not being listed in his medication list. Exam and labs reveal hypovolemia and an acute kidney injury (creatinine increased from baseline 1.11.3 to 2.0), likely due to overdiuresis. He is being treated with IV fluids and has had diuretics and losartan held. His hypotension is consistent with orthostatic dehydration, and while arrhythmia seems unlikely, pacemaker interrogation may be considered if symptoms persist. He has stable microcytic anemia (Hgb 910), prompting further iron studies. CHF history is unclearVA records and prior echocardiograms are being requested. Current treatment is cautious due to his clinical hypovolemia, and he is under observation with plans to discharge once volume status and renal function stabilize. 02/08/25: Met with patient bedside. Endorses improvement in dizziness although he has not been out of bed yet today. Creat levels have improved. Plan for Echo and carotid doppler today. Patient has follow up with cardiology for evaluation through [place] 02/23/25. - Review of Systems Constitutional: No Symptoms Eyes: No Symptoms Ears, Nose, & Throat: No Symptoms Respiratory: No Symptoms Cardiac: No Symptoms Abdominal/Gastrointestinal: No Symptoms Genitourinary Symptoms: No Symptoms Musculoskeletal: No Symptoms Skin: No Symptoms Neurological: Dizziness Psychological: No Symptoms Endocrine: No Symptoms Hematologic/Lymphatic: Anemia Immunological/Allergic: No Symptoms Objective Exam General Appearance: no apparent distress Neurologic Exam: alert, 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, cooperative Skin Exam: normal color Eye Exam: PERRL Ears, Nose, Throat Exam: normal ENT inspection Neck Exam: normal inspection Respiratory Exam: normal breath sounds, lungs clear Cardiovascular Exam: regular rate/rhythm, normal heart sounds Gastrointestinal/Abdomen Exam: soft, normal bowel sounds Extremity Exam: normal inspection Back Exam: normal inspection Male Genitalia Exam: deferred Rectal Exam: deferred Objective Data Vital Signs: Vital Signs - 24 hr Temp Pulse Resp BP BP Pulse Ox 02/08/25 04:00 98.5 F 70 17 136/60 94 L 02/08/25 00:00 70 12 02/07/25 21:27 96 02/07/25 19:47 97.9 F 84 18 124/58 96 02/07/25 18:42 92 L 02/07/25 18:30 71 16 132/75 84 L 02/07/25 18:01 71 19 153/91 85 L 02/07/25 17:30 79 15 168/84 02/07/25 17:00 74 16 167/86 98 02/07/25 16:30 70 18 161/85 99 02/07/25 16:02 70 15 145/82 96 02/07/25 15:16 99 02/07/25 15:15 70 17 140/69 95 02/07/25 15:12 96.6 F 69 20 140/69 92 L Pain Assessment - Last Documented Pain Intensity 0 Intake and Output: Intake & Output 02/05/25 02/06/25 02/07/25 02/08/25 11:59 11:59 11:59 11:59 Output Total 875 Balance -875 Weight 110.8 kg Lab Results: Lab Results-Last 24 Hours 02/07/25 02/07/25 02/07/25 Range/Units 15:29 15:29 15:29 WBC 5.4 (4.23-9.07) x10^3/uL RBC 4.51 L (4.63-6.08) x10^6/uL Hgb 9.5 L (13.7-17.5) g/dL Hct 32.6 L (40.1-51.0) % MCV 72.3 L (79.0-92.2) fL MCH 21.1 L (25.7-32.2) pg MCHC 29.1 L (32.3-36.5) g/dL RDW 16.6 H (11.6-14.4) % Plt Count 273 (163-337) x10^3/uL MPV 10.6 (9.4-12.4) fL Gran % 59.3 (34.0-67.9) % Immature Gran % (Auto) 0.9 H (0.001-0.429) % Nucleat RBC Rel Count 0.0 (0.00-0.2) % Eos # (Auto) 0.39 (0.04-0.54) x10^3/uL Immature Gran # (Auto) 0.05 H (0.001-0.031) x10^3u/L Absolute Lymphs (auto) 1.10 L (1.32-3.57) x10^3/uL Absolute Monos (auto) 0.64 (0.30-0.82) x10^3/uL Absolute Nucleated RBC 0.00 (0.00-0.012) x10^3u/L Lymphocytes % 20.2 L (21.8-53.1) % Monocytes % 11.8 (5.3-12.2) % Eosinophils % 7.2 H (0.8-7.0) % Basophils % 0.6 (0.2-1.2) % Absolute Granulocytes 3.23 (1.78-5.38) x10^3/uL Basophils # 0.03 (0.01-0.08) x10^3/uL Sodium 140 (135-145) mmol/L Potassium 4.6 (3.5-5.1) mmol/L Chloride 104 (98-107) mmol/L Carbon Dioxide 22 (22-30) mmol/L Anion Gap 18.3 H (5-15) MEQ/L BUN 39 H (9-20) mg/dL Creatinine 1.99 H (0.66-1.25) mg/dL Estimated GFR 33.7 ML/MIN Glucose 176 H (74-106) mg/dL POC Glucometer (74 to 106) mg/dL Calcium 9.4 (8.4-10.2) mg/dL Total Bilirubin 0.30 (0.2-1.3) mg/dL AST 22 (17-59) U/L ALT 18 (0-50) U/L Alkaline Phosphatase 109 (38-126) U/L Troponin I < 0.012 (0.000-0.033) ng/mL Serum Total Protein 6.9 (6.3-8.2) g/dL Albumin 4.2 (3.5-5.0) g/dL Urine Color (Yellow) Urine Appearance (Clear) Urine pH (4.6-8.0) Ur Specific [place] (1.005-1.030) Urine Protein (Negative) Urine Glucose (UA) (Negative) mg/dL Urine Ketones (Negative) Urine Blood (Negative) Urine Nitrite (Negative) Urine Bilirubin (Negative) Urine Urobilinogen (0.2) mg/dL Ur Leukocyte Esterase (Negative) U Hyaline Cast (Auto) (0-2) /LPF Urine Microscopic RBC (0-5) /HPF Urine Microscopic WBC (0-5) /HPF Ur Epithelial Cells (None Seen) /HPF Urine Bacteria (None Seen) /HPF Urine Culture Reflexed (NO) 02/07/25 02/07/25 02/07/25 Range/Units 15:47 19:37 20:49 WBC (4.23-9.07) x10^3/uL RBC (4.63-6.08) x10^6/uL Hgb (13.7-17.5) g/dL Hct (40.1-51.0) % MCV (79.0-92.2) fL MCH (25.7-32.2) pg MCHC (32.3-36.5) g/dL RDW (11.6-14.4) % Plt Count (163-337) x10^3/uL MPV (9.4-12.4) fL Gran % (34.0-67.9) % Immature Gran % (Auto) (0.001-0.429) % Nucleat RBC Rel Count (0.00-0.2) % Eos # (Auto) (0.04-0.54) x10^3/uL Immature Gran # (Auto) (0.001-0.031) x10^3u/L Absolute Lymphs (auto) (1.32-3.57) x10^3/uL Absolute Monos (auto) (0.30-0.82) x10^3/uL Absolute Nucleated RBC (0.00-0.012) x10^3u/L Lymphocytes % (21.8-53.1) % Monocytes % (5.3-12.2) % Eosinophils % (0.8-7.0) % Basophils % (0.2-1.2) % Absolute Granulocytes (1.78-5.38) x10^3/uL Basophils # (0.01-0.08) x10^3/uL Sodium (135-145) mmol/L Potassium (3.5-5.1) mmol/L Chloride (98-107) mmol/L Carbon Dioxide (22-30) mmol/L Anion Gap (5-15) MEQ/L BUN (9-20) mg/dL Creatinine (0.66-1.25) mg/dL Estimated GFR ML/MIN Glucose (74-106) mg/dL POC Glucometer 180 H (74 to 106) mg/dL Calcium (8.4-10.2) mg/dL Total Bilirubin (0.2-1.3) mg/dL AST (17-59) U/L ALT (0-50) U/L Alkaline Phosphatase (38-126) U/L Troponin I < 0.012 (0.000-0.033) ng/mL Serum Total Protein (6.3-8.2) g/dL Albumin (3.5-5.0) g/dL Urine Color Yellow (Yellow) Urine Appearance Clear (Clear) Urine pH 5.5 (4.6-8.0) Ur Specific [place] 1.020 (1.005-1.030) Urine Protein 100 A (Negative) Urine Glucose (UA) >=1000 A (Negative) mg/dL Urine Ketones Negative (Negative) Urine Blood Negative (Negative) Urine Nitrite Negative (Negative) Urine Bilirubin Negative (Negative) Urine Urobilinogen 0.2 (0.2) mg/dL Ur Leukocyte Esterase Negative (Negative) U Hyaline Cast (Auto) NONE SEEN (0-2) /LPF Urine Microscopic RBC 0-2 (0-5) /HPF Urine Microscopic WBC 0-2 (0-5) /HPF Ur Epithelial Cells None Seen (None Seen) /HPF Urine Bacteria None Seen (None Seen) /HPF Urine Culture Reflexed NO (NO) 02/07/25 02/08/25 Range/Units 23:20 04:35 WBC 4.3 (4.23-9.07) x10^3/uL RBC 4.00 L (4.63-6.08) x10^6/uL Hgb 8.2 L (13.7-17.5) g/dL Hct 28.7 L (40.1-51.0) % MCV 71.8 L (79.0-92.2) fL MCH 20.5 L (25.7-32.2) pg MCHC 28.6 L (32.3-36.5) g/dL RDW 16.8 H (11.6-14.4) % Plt Count 227 (163-337) x10^3/uL MPV 10.3 (9.4-12.4) fL Gran % (34.0-67.9) % Immature Gran % (Auto) (0.001-0.429) % Nucleat RBC Rel Count (0.00-0.2) % Eos # (Auto) (0.04-0.54) x10^3/uL Immature Gran # (Auto) (0.001-0.031) x10^3u/L Absolute Lymphs (auto) (1.32-3.57) x10^3/uL Absolute Monos (auto) (0.30-0.82) x10^3/uL Absolute Nucleated RBC (0.00-0.012) x10^3u/L Lymphocytes % (21.8-53.1) % Monocytes % (5.3-12.2) % Eosinophils % (0.8-7.0) % Basophils % (0.2-1.2) % Absolute Granulocytes (1.78-5.38) x10^3/uL Basophils # (0.01-0.08) x10^3/uL Sodium (135-145) mmol/L Potassium (3.5-5.1) mmol/L Chloride (98-107) mmol/L Carbon Dioxide (22-30) mmol/L Anion Gap (5-15) MEQ/L BUN (9-20) mg/dL Creatinine (0.66-1.25) mg/dL Estimated GFR ML/MIN Glucose (74-106) mg/dL POC Glucometer (74 to 106) mg/dL Calcium (8.4-10.2) mg/dL Total Bilirubin (0.2-1.3) mg/dL AST (17-59) U/L ALT (0-50) U/L Alkaline Phosphatase (38-126) U/L Troponin I < 0.012 (0.000-0.033) ng/mL Serum Total Protein (6.3-8.2) g/dL Albumin (3.5-5.0) g/dL Urine Color (Yellow) Urine Appearance (Clear) Urine pH (4.6-8.0) Ur Specific [place] (1.005-1.030) Urine Protein (Negative) Urine Glucose (UA) (Negative) mg/dL Urine Ketones (Negative) Urine Blood (Negative) Urine Nitrite (Negative) Urine Bilirubin (Negative) Urine Urobilinogen (0.2) mg/dL Ur Leukocyte Esterase (Negative) U Hyaline Cast (Auto) (0-2) /LPF Urine Microscopic RBC (0-5) /HPF Urine Microscopic WBC (0-5) /HPF Ur Epithelial Cells (None Seen) /HPF Urine Bacteria (None Seen) /HPF Urine Culture Reflexed (NO) Radiology Exams: Radiology Procedures Category Date Time Status HEAD WITHOUT CONTRAST [CT] Stat Exams 02/07/25 15:21 Completed Medications: Medications Generic Name Dose Route Start Last Admin Trade Name Freq PRN Reason Stop Dose Admin Acetaminophen 650 mg 02/07/25 22:04 Acetaminophen 325 Mg Tablet PO 03/09/25 22:03 Q4H PRN PRN PAIN AND/OR FEVER Albuterol Sulfate 4 puff 02/07/25 22:53 Albuterol Common Canister Inhaler IH 03/09/25 22:52 Q4H PRN PRN SHORTNESS OF BREATH/WHEEZING Aspirin 81 mg 02/08/25 10:00 Aspirin 81 Mg Tablet.Ec PO 03/10/25 09:59 DAILY FELICE Atorvastatin Calcium 80 mg 02/08/25 10:00 Atorvastatin Calcium 40 Mg Tablet PO 03/10/25 09:59 DAILY FELICE Carbamazepine 200 mg 02/08/25 10:00 Carbamazepine 200 Mg Tablet PO 03/10/25 09:59 BID FELICE Carvedilol 12.5 mg 02/08/25 10:00 02/07/25 22:41 Carvedilol 12.5 Mg Tablet PO 03/10/25 09:59 12.5 mg BID FELICE Administration Clopidogrel Bisulfate 75 mg 02/08/25 10:00 Clopidogrel Bisulfate 75 Mg Tablet PO 03/10/25 09:59 DAILY FELICE Docusate Sodium 100 mg 02/07/25 22:02 Docusate Sodium 100 Mg Capsule PO 03/09/25 22:01 BID PRN CONSTIPATION Duloxetine HCl 90 mg 02/08/25 10:00 Duloxetine Hcl 30 Mg Cap PO 03/10/25 09:59 DAILY FELICE Finasteride 5 mg 02/08/25 10:00 Finasteride 5 Mg Tablet PO 03/10/25 09:59 DAILY [facility] Heparin Sodium (Beef Lung) 5,000 unit 02/08/25 06:00 Heparin 5000 Units/0.5 Ml 5,000 Unit/0.5 Ml Syr SQ 03/10/25 05:59 Q8HT [facility] Sodium Chloride 1,000 mls @ 100 mls/hr 02/07/25 15:30 02/07/25 15:39 Sodium Chloride 0.9% 1000 Ml IV 03/09/25 15:29 50 mls/hr .Q10H FELICE Administration Insulin Human Lispro 0 unit 02/07/25 22:04 Insulin Lispro 1 Unit SQ 03/09/25 22:03 UD PRN HYPERGLYCEMIA Non-Formulary Medication 10 mg 02/08/25 10:00 Amlodipine Besylate [Amlodipine Besylate] PO 03/10/25 09:59 DAILY [facility] Non-Formulary Medication 1,000 mcg 02/08/25 10:00 Cyanocobalamin (Vitamin B-12) [B-12] PO 03/10/25 09:59 DAILY [facility] Non-Formulary Medication 20 mg 02/08/25 10:00 Omeprazole [Omeprazole] PO 03/10/25 09:59 DAILY [facility] Discontinued Medications Generic Name Dose Route Start Last Admin Trade Name Freq PRN Reason Stop Dose Admin Aspirin 324 mg 02/07/25 17:32 02/07/25 17:37 Aspirin 81 Mg Tab.Chew PO 02/07/25 17:33 Not Given STAT ONE Losartan Potassium 100 mg 02/08/25 10:00 02/07/25 22:41 Losartan Potassium 50 Mg Tablet PO 03/10/25 09:59 100 mg BID FELICE Administration Assessment/Plan (1) Acute renal injury Current Visit: Yes Status: Acute Assessment & Plan: -most likely secondary to overdiuresis -baseline creat around 1.3 on admission at 1.99 improving today at 1.51 -IVF - monitor for fluid overload with questionable history of CHF -Monitor renal/lytes -Hold lasix /HCTZ/Losartan Code(s): N17.9 - ACUTE KIDNEY FAILURE, UNSPECIFIED (2) Near syncope Current Visit: Yes Status: Acute Assessment & Plan: -CT head with no acute findings -Most likely secondary to overdiuresis with the use of lasix and HCTZ -tele -consider pacemaker interrogation -Obtaining records from [place] - has follow up with cardiology on 02/23/25 OP - echo, [place] (3) CHF (congestive heart failure) Current Visit: Yes Status: Acute Assessment & Plan: -No reported history - obtaining records from [place]- Echo -Holding home lasix due to ALEX Code(s): I50.9 - HEART FAILURE, UNSPECIFIED (4) Microcytic anemia Current Visit: Yes Status: Acute Assessment & Plan: Iron sat at 8%/ ferritin at 6.39- will start ferrous sulfate - Patient may need follow up with hematology for IV iron infusions Code(s): D50.9 - IRON DEFICIENCY ANEMIA, UNSPECIFIED (5) HTN (hypertension) Current Visit: Yes Status: Acute Assessment & Plan: -stable Holding losartan and HCTZ due to ALEX as above Holding Lasix as well Continue amlodipine 10 mg daily, carvedilol 12.5 BID Code(s): I10 - ESSENTIAL (PRIMARY) HYPERTENSION (6) CAD (coronary artery disease) Current Visit: Yes Status: Acute Assessment & Plan: with history of recent four-vessel CABG. Also history of pacemaker for unknown reason. Continue carvedilol 25 BID, aspirin 81, atorvastatin 80, Plavix 75 Code(s): I25.10 - ATHSCL HEART DISEASE OF [place] CORONARY ARTERY W/O ANG PCTRS (7) Type 2 diabetes mellitus Current Visit: Yes Status: Acute Assessment & Plan: Place on moderate dose sliding scale insulin Diabetic diet A1c pending (8) BPH (benign prostatic hyperplasia) Current Visit: Yes Status: Acute Assessment & Plan: Continue finasteride 5 mg daily If ALEX not resolving with fluids, can consider renal ultrasound to evaluate for retention CODE STATUS: Full code Diet: Diabetic Prophylaxis: Subcutaneous heparin Dispo: Place in observation, expect discharge to home Code(s): N40.0 - BENIGN PROSTATIC HYPERPLASIA WITHOUT LOWER URINRY TRACT SYMP
[2025-02-08 05:41] LABS: Iron 27 ug/dL (49-181); Iron Saturation 8 % (20-39); TIBC 327 ug/dL (261-497)
[2025-02-08 06:06] LABS: ANION GAP 14.3 MEQ/L (5-15); Creatinine 1 1.51 mg/dL (0.66-1.25); Ferritin 6.39 ng/mL (17.9-464); Potassium 4.1 mmol/L (3.5-5.1)
[2025-02-08] MEDS: Cymbalta 30 MG Capsule PO SCH (09:10)
[2025-02-08] MEDS: ECOTRIN 81 MG PO SCH (09:10)
[2025-02-08] MEDS: PLAVIX Tablet PO SCH (09:11)
[2025-02-08] MEDS: FEOSOL 325 MG PO SCH (09:11)
[2025-02-08] MEDS: Protonix 40MG Tablet PO SCH (09:12)
[2025-02-08] MEDS: Vitamin B-12 500 MCG PO SCH (09:12)
[2025-02-08] MEDS: NORVASC 5 MG PO SCH (09:12)
[2025-02-08] MEDS: ZOCOR 20MG PO SCH (09:12)
[2025-02-08] MEDS: Proscar 5 MG PO SCH (09:16)
[2025-02-08] MEDS: Tegretol 200 MG PO SCH (09:16)
[2025-02-08] MEDS ORDERED: NON-FORMULARY ITEM (Omeprazole [Omeprazole] 20 MG Capsule.Dr) PO SCH (10:00)
[2025-02-08] MEDS ORDERED: LIPITOR 40MG PO SCH (10:00)
[2025-02-08] MEDS ORDERED: NON-FORMULARY ITEM (Cyanocobalamin (Vitamin B-12) [B-12] 1,000 MCG Tablet) PO SCH (10:00)
[2025-02-08] MEDS ORDERED: NON-FORMULARY ITEM (Amlodipine Besylate [Amlodipine Besylate] 10 MG Tablet) PO SCH (10:00)
[2025-02-08] MEDS: HUMALOG SQ PRN (11:57)
--- NOTE | 2025-02-08 12:51 | XRAY ---
Indication: Syncope. Two-dimensional sonogram and color Doppler imaging carotid arteries of the neck performed. Comparison: None Examination right carotid circulation demonstrates widely patent common carotid artery. Mild heterogeneous plaquing carotid bulb extending into origins/proximal both internal carotid and external carotid arteries. PSV CCA is 89 cm/s. PSV ICA is 137 cm/s. ICA/CCA ratio is 1.5. Normal antegrade vertebral artery flow. Examination left carotid circulation demonstrates mild eccentric calcific plaquing mid common carotid artery. Moderate calcified plaquing carotid bulb extending into origins both internal carotid and extracranial carotid arteries. PSV CCA is 116 cm/s. PSV ICA is 106 cm/s. ICA/CCA ratio is 0.9. Normal antegrade vertebral artery flow. Impression: Mild right and moderate left carotid arteriosclerotic disease as detailed. Velocity measurements and ratios negative for hemodynamically significant flow stenosis.
[2025-02-08] MEDS: PROAMATINE PO SCH (15:12)
[2025-02-09 07:46] VITALS: BP 192/81; PULSE 71; RESP 22; TEMP 97.6; O2SAT 97
[2025-02-09 08:05] LABS: ALBUMIN 3.9 g/dL (3.5-5.0); ANION GAP 13.3 MEQ/L (5-15); BILIRUBIN,TOTAL 0.3 mg/dL (0.2-1.3); Calcium 9.1 mg/dL (8.4-10.2); Creatinine 1 1.43 mg/dL (0.66-1.25); EST GLOMERULAR FILTRATION RATE 50.2 ML/MIN; Potassium 4.1 mmol/L (3.5-5.1); Total Protein 6.8 g/dL (6.3-8.2)
[2025-02-09 08:10] LABS: Absolute Neutrophil Ct (ANC) 3.65 x10^3/uL (1.78-5.38); BASOPHIL % 0.5 % (0.2-1.2); Basophil (Absolute #) 0.03 x10^3/uL (0.01-0.08); Eosinophil % 5.8 % (0.8-7.0); Eosinophil (Absolute #) 0.35 x10^3/uL (0.04-0.54); Hematocrit 33.3 % (40.1-51.0); Hemoglobin 9.4 g/dL (13.7-17.5); IMMATURE GRAN # 0.05 x10^3u/L (0.001-0.031); IMMATURE GRAN % 0.8 % (0.001-0.429); Lymphocyte (Absolute #) 1.26 x10^3/uL (1.32-3.57); Mean Cell Volume 73.8 fL (79.0-92.2); Mean Corpuscular Hemoglobin 20.8 pg (25.7-32.2); Mean Corpuscular Hgb Concent. 28.2 g/dL (32.3-36.5); Mean Platelet Volume 10.7 fL (9.4-12.4); Monocyte (Absolute #) 0.67 x10^3/uL (0.30-0.82); Monocytes % 11.1 % (5.3-12.2); Neutrophil % 60.8 % (34.0-67.9); Platelet Count 236 x10^3/uL (163-337); Red Blood Count 4.51 x10^6/uL (4.63-6.08); Red Cell Distribution Width 16.9 % (11.6-14.4)
--- NOTE | 2025-02-09 09:09 | PCM.DS ---
Discharge Summary Date of Admission: 02/07/25 19:03 Date of Discharge: 02/09/25 Admitting Physician: ANGELINA FRANCE MD Primary Care Provider: [facility] Allergies Allergies No Known Drug Allergies Allergy (Verified 12/18/24 10:28) Hospital Summary - Hospital Course Hospital Course: Mr. Shaikh is a 79-year-old male with a history of coronary artery disease post- CABG, hypertension, type 2 diabetes, BPH, prior CVA, depression, and chronic microcytic anemia, admitted on 02/07/25 after experiencing recurrent presyncopal episodes and a fall during cardiac rehab. He reported lightheadedness on standing without associated syncope or seizure activity. Evaluation revealed orthostatic hypotension and acute kidney injury (creatinine increased from baseline 1.3 to 2.0), likely due to overdiuresis from concurrent use of furosemide and HCTZ. Both diuretics and losartan were held, and the patient was treated with IV fluids with close monitoring for fluid overload given uncertain CHF history. His creatinine has now returned to baseline, and dizziness has resolved. CT head was unremarkable, carotid Doppler was negative for significant stenosis, and echocardiogram is pending. His anemia was confirmed as iron- deficiency (ferritin 6.39, iron saturation 8%), and he was started on oral iron. Diabetes was managed with sliding scale insulin during hospitalization. He is being discharged in stable condition, with no further dizziness and improved volume status. He will follow up with cardiology at the [facility] on 02/23/25 and has also been referred to nephrology for ongoing renal monitoring and hematology for his iron deficiency anemia. He has been advised to discontinue Lasix and HCTZ. Patient states that he was already told to discontinue lasix but felt he needed it so was taking it unprescribed. Orthostatic vitals positive. Midodrine initiated. Will resume his Losartan. Patient is scheduled today for consult for colonoscopy. Discharge Note New Diagnosis: Near syncope New Medications: Discontinue HCTZ/Lasix - continue midodrine/ferrous sulfate Follow Up: Cardiology/PCP/nephrology/Hematology Results pending: Joslyn I spent 35 minutes [id number] with the patient on the day of discharge performing discharge exam, discussing hospital stay and discharge instructions with patient and caregivers, preparation of discharge records, prescriptions & referral forms and addressing any questions/concerns the patient had as documented above. - Vitals & Intake/Output Vital Signs: Vital Signs Temperature 97.6 F 02/09/25 07:46 Pulse Rate 71 02/09/25 07:46 Respiratory Rate 22 02/09/25 07:46 Blood Pressure 192/81 02/09/25 07:46 O2 Sat by Pulse Oximetry 97 02/09/25 07:46 Intake & Output: Intake & Output 02/06/25 02/07/25 02/08/25 02/09/25 11:59 11:59 11:59 11:59 Intake Total 120 360 Output Total 1475 1650 Balance -1355 -1290 Weight 110.8 kg - Lab Result Diagrams: 02/09/25 07:45 02/09/25 07:45 Lab Results-Last 24 Hrs: Lab Results-Last 24 Hours 02/08/25 02/08/25 02/08/25 Range/Units 11:21 16:10 20:51 WBC (4.23-9.07) x10^3/uL RBC (4.63-6.08) x10^6/uL Hgb (13.7-17.5) g/dL Hct (40.1-51.0) % MCV (79.0-92.2) fL MCH (25.7-32.2) pg MCHC (32.3-36.5) g/dL RDW (11.6-14.4) % Plt Count (163-337) x10^3/uL MPV (9.4-12.4) fL Gran % (34.0-67.9) % Immature Gran % (Auto) (0.001-0.429) % Nucleat RBC Rel Count (0.00-0.2) % Eos # (Auto) (0.04-0.54) x10^3/uL Immature Gran # (Auto) (0.001-0.031) x10^3u/L Absolute Lymphs (auto) (1.32-3.57) x10^3/uL Absolute Monos (auto) (0.30-0.82) x10^3/uL Absolute Nucleated RBC (0.00-0.012) x10^3u/L Lymphocytes % (21.8-53.1) % Monocytes % (5.3-12.2) % Eosinophils % (0.8-7.0) % Basophils % (0.2-1.2) % Absolute Granulocytes (1.78-5.38) x10^3/uL Basophils # (0.01-0.08) x10^3/uL Sodium (135-145) mmol/L Potassium (3.5-5.1) mmol/L Chloride (98-107) mmol/L Carbon Dioxide (22-30) mmol/L Anion Gap (5-15) MEQ/L BUN (9-20) mg/dL Creatinine (0.66-1.25) mg/dL Estimated GFR ML/MIN Glucose (74-106) mg/dL POC Glucometer 218 H 167 H 151 H (74 to 106) mg/dL Calcium (8.4-10.2) mg/dL Total Bilirubin (0.2-1.3) mg/dL AST (17-59) U/L ALT (0-50) U/L Alkaline Phosphatase (38-126) U/L Serum Total Protein (6.3-8.2) g/dL Albumin (3.5-5.0) g/dL 02/09/25 02/09/25 02/09/25 Range/Units 07:37 07:37 07:45 WBC 6.0 (4.23-9.07) x10^3/uL RBC 4.51 L (4.63-6.08) x10^6/uL Hgb 9.4 L (13.7-17.5) g/dL Hct 33.3 L (40.1-51.0) % MCV 73.8 L (79.0-92.2) fL MCH 20.8 L (25.7-32.2) pg MCHC 28.2 L (32.3-36.5) g/dL RDW 16.9 H (11.6-14.4) % Plt Count 236 (163-337) x10^3/uL MPV 10.7 (9.4-12.4) fL Gran % 60.8 (34.0-67.9) % Immature Gran % (Auto) 0.8 H (0.001-0.429) % Nucleat RBC Rel Count 0.0 (0.00-0.2) % Eos # (Auto) 0.35 (0.04-0.54) x10^3/uL Immature Gran # (Auto) 0.05 H (0.001-0.031) x10^3u/L Absolute Lymphs (auto) 1.26 L (1.32-3.57) x10^3/uL Absolute Monos (auto) 0.67 (0.30-0.82) x10^3/uL Absolute Nucleated RBC 0.00 (0.00-0.012) x10^3u/L Lymphocytes % 21.0 L (21.8-53.1) % Monocytes % 11.1 (5.3-12.2) % Eosinophils % 5.8 (0.8-7.0) % Basophils % 0.5 (0.2-1.2) % Absolute Granulocytes 3.65 (1.78-5.38) x10^3/uL Basophils # 0.03 (0.01-0.08) x10^3/uL Sodium (135-145) mmol/L Potassium (3.5-5.1) mmol/L Chloride (98-107) mmol/L Carbon Dioxide (22-30) mmol/L Anion Gap (5-15) MEQ/L BUN (9-20) mg/dL Creatinine (0.66-1.25) mg/dL Estimated GFR ML/MIN Glucose (74-106) mg/dL POC Glucometer 122 H 122 H (74 to 106) mg/dL Calcium (8.4-10.2) mg/dL Total Bilirubin (0.2-1.3) mg/dL AST (17-59) U/L ALT (0-50) U/L Alkaline Phosphatase (38-126) U/L Serum Total Protein (6.3-8.2) g/dL Albumin (3.5-5.0) g/dL 02/09/25 Range/Units 07:45 WBC (4.23-9.07) x10^3/uL RBC (4.63-6.08) x10^6/uL Hgb (13.7-17.5) g/dL Hct (40.1-51.0) % MCV (79.0-92.2) fL MCH (25.7-32.2) pg MCHC (32.3-36.5) g/dL RDW (11.6-14.4) % Plt Count (163-337) x10^3/uL MPV (9.4-12.4) fL Gran % (34.0-67.9) % Immature Gran % (Auto) (0.001-0.429) % Nucleat RBC Rel Count (0.00-0.2) % Eos # (Auto) (0.04-0.54) x10^3/uL Immature Gran # (Auto) (0.001-0.031) x10^3u/L Absolute Lymphs (auto) (1.32-3.57) x10^3/uL Absolute Monos (auto) (0.30-0.82) x10^3/uL Absolute Nucleated RBC (0.00-0.012) x10^3u/L Lymphocytes % (21.8-53.1) % Monocytes % (5.3-12.2) % Eosinophils % (0.8-7.0) % Basophils % (0.2-1.2) % Absolute Granulocytes (1.78-5.38) x10^3/uL Basophils # (0.01-0.08) x10^3/uL Sodium 142 (135-145) mmol/L Potassium 4.1 (3.5-5.1) mmol/L Chloride 110 H (98-107) mmol/L Carbon Dioxide 22 (22-30) mmol/L Anion Gap 13.3 (5-15) MEQ/L BUN 27 H (9-20) mg/dL Creatinine 1.43 H (0.66-1.25) mg/dL Estimated GFR 50.2 ML/MIN Glucose 130 H (74-106) mg/dL POC Glucometer (74 to 106) mg/dL Calcium 9.1 (8.4-10.2) mg/dL Total Bilirubin 0.30 (0.2-1.3) mg/dL AST 21 (17-59) U/L ALT 13 (0-50) U/L Alkaline Phosphatase 108 (38-126) U/L Serum Total Protein 6.8 (6.3-8.2) g/dL Albumin 3.9 (3.5-5.0) g/dL Micro Results-Entire Visit: Accuchecks Date 02/09/25 Date 02/08/25 Date 02/08/25 Date 02/08/25 Time 20:45 Time 16:23 Time 11:45 - Radiology Exams Ordered Rad Exams-Entire Visit: Radiology Procedures Category Date Time Status CAROTID BILATERAL [US] Routine Exams 02/08/25 09:34 Completed ECHO W/2D AND DOPPLER [US] Routine Exams 02/08/25 09:34 Taken HEAD WITHOUT CONTRAST [CT] Stat Exams 02/07/25 15:21 Completed - Procedures and Test Procedures and Tests throughout Hospitalization: Therapy Orders & Screens 02/07/25 20:30 RT Screen per Nursing Assess ONCE Comment: Protocol Order Physician Instructions: Greater than 3 points order RT Admission Screen Reason For Exam: Triggered on Admission Diagnosis: syncope, Microcytic anemia, TAHIRA, Dizziness Diagnosis: syncope, Microcytic anemia, TAHIRA, Dizziness Pneumonia: No Home O2: No Asthma: No CHF: No Home CPAP/BIPAP: Yes Home Nebs/MDI: Yes Total Points: 10 02/08/25 07:21 Respiratory Therapy Assessment DAILY Comment: Diagnosis: lightheadedness, dizziness Discharge Exam General Appearance: no apparent distress Neurologic Exam: alert, 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, cooperative Eye Exam: PERRL Ears, Nose, Throat Exam: normal ENT inspection Neck Exam: normal inspection Respiratory Exam: normal breath sounds, lungs clear Cardiovascular Exam: regular rate/rhythm, normal heart sounds Gastrointestinal/Abdomen Exam: soft, normal bowel sounds Male Genitalia Exam: deferred Rectal Exam: deferred Back Exam: normal inspection Extremity Exam: swelling (BLE +1) Skin Exam: normal color Final Diagnosis/Problem List - Final Discharge Diagnosis/Problem (1) Near syncope Current Visit: Yes Status: Resolved (2) Acute renal injury Current Visit: Yes Status: Acute Code(s): N17.9 - ACUTE KIDNEY FAILURE, UNSPECIFIED (3) CHF (congestive heart failure) Current Visit: Yes Status: Chronic Code(s): I50.9 - HEART FAILURE, UNSPECIFIED (4) Microcytic anemia Current Visit: Yes Status: Chronic Code(s): D50.9 - IRON DEFICIENCY ANEMIA, UNSPECIFIED (5) HTN (hypertension) Current Visit: Yes Status: Chronic Code(s): I10 - ESSENTIAL (PRIMARY) HYPERTENSION (6) CAD (coronary artery disease) Current Visit: Yes Status: Chronic Code(s): I25.10 - ATHSCL HEART DISEASE OF [place] CORONARY ARTERY W/O ANG PCTRS (7) Type 2 diabetes mellitus Current Visit: Yes Status: Chronic (8) BPH (benign prostatic hyperplasia) Current Visit: Yes Status: Chronic Code(s): N40.0 - BENIGN PROSTATIC HYPERPLASIA WITHOUT LOWER URINRY TRACT SYMP - Discharge Discharge Date: 02/09/25 Disposition: Home, Self-Care Condition: Stable Prescriptions: New Ferrous Sulfate 325 mg [Feosol 325 mg] 325 mg PO DAILY 30 Days #30 tablet Midodrine HCl 5 mg PO TID 30 Days #90 tablet Continue Duloxetine HCl 30 mg [Cymbalta 30 MG Capsule] 90 mg PO DAILY Finasteride 5 mg [Proscar 5 MG] 5 mg PO DAILY Atorvastatin Calcium [Lipitor] 80 mg PO DAILY Aspirin EC 81 mg [Ecotrin 81 mg] 81 mg PO DAILY Omeprazole 20 mg PO DAILY Losartan Potassium 50 mg [Cozaar 50 MG] 100 mg PO BID Acetaminophen 325 mg [Tylenol 325 mg] 325 mg PO Q4H PRN PRN Reason: Pain Amlodipine Besylate 10 mg PO DAILY Carbamazepine 200 mg [Tegretol 200 MG] 200 mg PO BID Carvedilol 12.5 mg [Coreg 12.5 mg] 12.5 mg PO BID Clopidogrel Bisulfate [PLAVIX Tablet] 75 mg PO DAILY Cyanocobalamin (Vitamin B-12) [B-12] 1,000 mcg PO DAILY Docusate Sodium 100 mg [Docusate Sodium 100 MG] 100 mg PO BID PRN PRN Reason: Constipation Empagliflozin [Jardiance] 25 mg PO DAILY Discontinued Hydrochlorothiazide 25 mg [hydroDIURIL 25 MG] 25 mg PO DAILY Follow up with: [facility]OSP[facility],'S [Primary Care Provider] -
[2025-02-09] MEDS ORDERED: PROAMATINE PO SCH (10:00)
[2025-02-09 13:30] LABS: Slide Review 1 YES
== END 2025-02-09 10:50 | disposition home or self-care (01) ==
LOC: ED 15:11 → MED SURG 19:03
PROVIDERS: ADMIT Internal Medicine; ATTEND Internal Medicine
DX: R55 Syncope and collapse (principal); N17.9 Acute kidney failure, unspecified; I11.0 Hypertensive heart disease with heart failure; I50.9 Heart failure, unspecified; D50.9 Iron deficiency anemia, unspecified; I25.10 Atherosclerotic heart disease of native coronary artery without angina pectoris; E11.9 Type 2 diabetes mellitus without complications; N40.0 Benign prostatic hyperplasia without lower urinary tract symptoms; E78.5 Hyperlipidemia, unspecified; Z79.899 Other long term (current) drug therapy; Z86.73 Personal history of transient ischemic attack (TIA), and cerebral infarction without residual deficits; Z79.01 Long term (current) use of anticoagulants; Z95.0 Presence of cardiac pacemaker
CPT/HCPCS: 36415; 70450; 80048; 80053; 81001; 82728; 82947; 83036; 83540; 83550; 84484; 85025; 85027; 93005; 93041; 93268; 93306; 93880; 94760; 99285; G0378; Q3014; J1644; J1817; A9270-GY